=== PATIENT | female | born 1960 | race Caucasian/White ===

== ENCOUNTER 2024-07-20 10:44 | Outpatient (CLI) | payer BC, SELFPAY | END 2024-07-20 10:45 | disposition home or self-care (01) | LOC: MRI 10:48 | PROVIDERS: PCP Family Medicine; Visit Provider Surgery | DX: C50.211 Malignant neoplasm of upper-inner quadrant of right female breast (principal); R59.0 Localized enlarged lymph nodes; K76.9 Liver disease, unspecified; N63.10 Unspecified lump in the right breast, unspecified quadrant | CPT/HCPCS: 77049; A9575 ==

== ENCOUNTER 2024-07-27 10:11 | Outpatient (CLI) | payer BC, SELFPAY ==
--- NOTE | 2024-07-27 10:15 | CRLHL7_ITS ---
For Patients: As a result of the Century Cures Act, medical imaging exams and procedure reports are released immediately into your electronic medical record. You may view this report before your referring provider. If you have questions, please contact your health care provider. 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 This is concordant. Appropriate action recommended. Dictated by: Wayne Ross MD @07/31/2024 10:50:31 AM/jj ULTRASOUND-GUIDED LEFT BREAST BIOPSY AND POST-BIOPSY DIGITAL MAMMOGRAM FOR BIOPSY MARKER PLACEMENT CLINICAL HISTORY: RIGHT breast cancer. Suspicious lesion on MRI. COMPARISON STUDIES: MRI 07/20/2024, mammograms 07/10/2024. TECHNIQUE: Real-time ultrasound with image documentation was used for targeting the breast lesion. Core biopsy specimens were obtained using an automated gun with a 16-gauge biopsy needle. Post-biopsy CC and ML digital mammograms were obtained to document position of the biopsy marker. CONSENT and TIME OUT: The procedure, risks, and alternatives were explained to the patient and a consent was signed. [place] Protocol was followed including pre-procedure verification that relevant information/documentation was available, reviewed and properly matched to the patient; consent accurate and complete; and equipment and supplies available. Time Out was conducted just prior to starting procedure to verify the four required elements: patient identity, correct side/site marked (if applicable), procedure, relevant images/results properly labeled and displayed (if applicable). PROCEDURE: The patient was positioned supine on the ultrasound table. The breast was prepped with ChloraPrep. 8 cc of 1% lidocaine used for local anesthesia. Core samples were obtained. A sterile metal biopsy clip was placed percutaneously to chelly the lesion position within the breast. The specimens were placed in 10% formalin and sent to the pathology department. Pressure was held on the biopsy site until all bleeding subsided. The skin incision was closed with Steri-Strips. An ice pack was positioned over the biopsy site. Post-biopsy instructions were reviewed with the patient, and a written copy was given to her. LATERALITY: LEFT breast LESION: Solid lobular hypoechoic nodule with possible distal acoustic shadowing measuring 8 x 5 x 5 millimeters at 5 o`clock 6 cm from the nipple. SUSPICION FOR MALIGNANCY: High NUMBER OF SAMPLES: 5 BIOPSY CLIP SHAPE: Oval-shaped PROXIMITY OF CLIP TO TARGET: Within the lesion IMPRESSION: Ultrasound-guided LEFT breast biopsy. When the pathology report is available, an addendum to this report will be made. ACR not applicable Dictated by Wayne Ross MD @ 07/27/2024 1:43:26 PM CRL:james RD/Dictated by: Wayne Ross MD @ 07/27/2024 1:43:00 PM Signed by: Wayne Ross @ 07/27/2024 2:41:07 PM (Electronic Signature) (Electronically Signed)
--- NOTE | 2024-07-27 10:15 | CRLHL7_ITS ---
For Patients: As a result of the Century Cures Act, medical imaging exams and procedure reports are released immediately into your electronic medical record. You may view this report before your referring provider. If you have questions, please contact your health care provider. ULTRASOUND-GUIDED RIGHT AXILLARY LYMPH NODE BIOPSY CLINICAL HISTORY: Right breast cancer. Prominent right axillary lymph nodes. COMPARISON STUDIES: Breast MRI 07/20/2024 TECHNIQUE: Real-time ultrasound with image documentation was used for targeting the right axillary lesion. Core biopsy specimens were obtained using an automated gun with an 18-gauge biopsy needle. CONSENT and TIME OUT: The procedure, risks, and alternatives were explained to the patient and a consent was signed. [place] Protocol was followed including pre-procedure verification that relevant information/documentation was available, reviewed and properly matched to the patient; consent accurate and complete; and equipment and supplies available. Time Out was conducted just prior to starting procedure to verify the four required elements: patient identity, correct side/site marked (if applicable), procedure, relevant images/results properly labeled and displayed (if applicable). PROCEDURE: The patient was positioned supine on the ultrasound table. The breast was prepped with ChloraPrep. 8 cc of 1 percent lidocaine was used for local anesthesia. Core samples were obtained. A sterile metal biopsy clip was placed percutaneously to chelly the lesion position within the right axilla. The specimens were placed in 10% formalin and sent to the pathology department. Pressure was held on the biopsy site until all bleeding subsided. The skin incision was closed with Steri-Strips. An ice pack was positioned over the biopsy site. Post-biopsy instructions were reviewed with the patient, and a written copy was given to her. LATERALITY: Right axilla LESION: Mildly prominent right axillary lymph node measuring 1.8 cm SUSPICION FOR MALIGNANCY: Intermediate NUMBER OF SAMPLES: 5 BIOPSY CLIP SHAPE: HydroMARK PROXIMITY OF CLIP TO TARGET: Within the lesion IMPRESSION: Ultrasound-guided right axillary lymph node biopsy. When the pathology report is available, an addendum to this report will be made. ACR not applicable Dictated by Wayne Ross MD @ 07/27/2024 1:11:48 PM (Electronically Signed)
--- NOTE | 2024-07-27 11:00 | CRLHL7_ITS ---
For Patients: As a result of the Century Cures Act, medical imaging exams and procedure reports are released immediately into your electronic medical record. You may view this report before your referring provider. If you have questions, please contact your health care provider. SEE LEFT BREAST ULTRASOUND-GUIDED BIOPSY OF SAME DAY. CRL:james RD/Dictated by: Wayne Ross MD @ 07/27/2024 1:39:00 PM (Electronically Signed)
== END 2024-07-27 10:12 | disposition home or self-care (01) ==
LOC: US 10:12
PROVIDERS: PCP Family Medicine; Visit Provider Surgery
DX: N63.20 Unspecified lump in the left breast, unspecified quadrant (principal); C50.912 Malignant neoplasm of unspecified site of left female breast; C50.911 Malignant neoplasm of unspecified site of right female breast; Z17.0 Estrogen receptor positive status [ER+]
CPT/HCPCS: 19083; 38505; 76942; 77065; 88305; 88342; 88360; 88361; A4648; A4649

== ENCOUNTER 2024-08-09 11:38 | Outpatient (CLI) | payer BC, SELFPAY ==
--- NOTE | 2024-08-09 12:00 | CRLHL7_ITS ---
For Patients: As a result of the Century Cures Act, medical imaging exams and procedure reports are released immediately into your electronic medical record. You may view this report before your referring provider. If you have questions, please contact your health care provider. INDICATION: Leg pain and swelling TECHNIQUE: Ultrasound venous duplex lower left extremity. Compression venous exam was performed using barton-scale, color Doppler, and spectral Doppler analysis. COMPARISON: None. FINDINGS: Sonographic imaging demonstrates the left common femoral, deep femoral, superficial femoral, popliteal, posterior tibial and greater saphenous and the contralateral right common femoral veins to be fully compressible with normal color Doppler blood flow. IMPRESSION: Normal left lower extremity venous ultrasound, no sign of deep venous thrombosis. Dictated by Clifford Larios MD @ 08/09/2024 1:09:23 PM (Electronically Signed)
== END 2024-08-09 11:39 | disposition home or self-care (01) ==
LOC: US 11:39
PROVIDERS: PCP Family Medicine; Visit Provider Internal Medicine Hematology & Oncology
DX: M79.605 Pain in left leg (principal); M79.89 Other specified soft tissue disorders; C50.919 Malignant neoplasm of unspecified site of unspecified female breast
CPT/HCPCS: 93971

== ENCOUNTER 2024-08-09 12:16 | Outpatient (BNVA) | payer BC, SELFPAY | END 2024-08-09 12:30 | disposition home or self-care (01) | PROVIDERS: PCP Family Medicine; Referring Provider Family Medicine; Visit Provider Internal Medicine Hematology & Oncology | DX: C50.919 Malignant neoplasm of unspecified site of unspecified female breast (principal); M79.89 Other specified soft tissue disorders | CPT/HCPCS: 80053; 85025 ==

== ENCOUNTER 2024-09-06 15:03 | Outpatient (CLI) | payer BC, SELFPAY | END 2024-09-06 15:04 | disposition home or self-care (01) | LOC: NFLDREF 09-09 08:33 | PROVIDERS: PCP Family Medicine; Referring Provider Family Medicine; Visit Provider Internal Medicine Hematology & Oncology | DX: C50.211 Malignant neoplasm of upper-inner quadrant of right female breast (principal); C50.212 Malignant neoplasm of upper-inner quadrant of left female breast; Z17.0 Estrogen receptor positive status [ER+] | CPT/HCPCS: 80053 ==

== ENCOUNTER 2024-09-20 15:22 | Outpatient (BNVA) | payer BC, SELFPAY | END 2024-09-20 15:30 | disposition home or self-care (01) | PROVIDERS: PCP Family Medicine; Referring Provider Family Medicine; Visit Provider Physician Assistant | DX: C50.911 Malignant neoplasm of unspecified site of right female breast (principal); C50.912 Malignant neoplasm of unspecified site of left female breast; Z17.0 Estrogen receptor positive status [ER+]; C78.7 Secondary malignant neoplasm of liver and intrahepatic bile duct; C79.51 Secondary malignant neoplasm of bone; M79.89 Other specified soft tissue disorders; R79.89 Other specified abnormal findings of blood chemistry; O99.210 Obesity complicating pregnancy, unspecified trimester; E11.65 Type 2 diabetes mellitus with hyperglycemia; E66.01 Morbid (severe) obesity due to excess calories; Z68.41 Body mass index [BMI] 40.0-44.9, adult | CPT/HCPCS: 80053; 85025 ==

== ENCOUNTER 2024-11-29 14:48 | Outpatient (CLI) | payer BC, SELFPAY ==
--- NOTE | 2024-11-29 15:00 | CRLHL7_ITS ---
For Patients: As a result of the 21st Century Cures Act, medical imaging exams and procedure reports are released immediately into your electronic medical record. You may view this report before your referring provider. If you have questions, please contact your health care provider. EXAM: CT OF THE LEFT ANKLE, WITH IV CONTRAST CLINICAL INDICATION: Progressive left ankle pain. Breast carcinoma. COMPARISON STUDIES: None. TECHNICAL: Enhanced CT of the ankle with axial images. Sagittal oblique and coronal oblique reformatted images were created. Contrast: Isovue 370, 101 mL IV. FINDINGS: OSSEOUS STRUCTURES: No cortical or intramedullary osseous lesion. No fractures are evident. JOINT SPACES: Ankle: 0.5 cm area of subchondral cystic change in the lateral talar dome consistent with overlying chondromalacia. No ankle joint effusion. Subtalar, Talonavicular and Calcaneocuboid: Joint spaces are maintained. Midfoot and Midfoot-forefoot junction: Joint spaces are maintained. SOFT TISSUES: Mild dystrophic calcification in the medial ligamentous structures. No subcutaneous mass, fluid collection or hematoma. MUSCLES: No intramuscular mass or hematoma. No muscle atrophy. TENDONS: Thickening of the posterior tibial tendon consistent with moderate tendinopathy. There is focal thinning in the posterior tibial tendon at the margin of the tibial plafond worrisome for a high-grade partial-thickness tear. No Achilles tendon tear. No subluxation of the peroneal tendons. IMPRESSION: 1. Posterior tibial tendinopathy with findings worrisome for a focal high-grade partial-thickness tear. 2. Small area of subchondral cystic change in the lateral talar dome consistent with overlying chondromalacia. 3. Mild dystrophic calcification in the medial ligamentous structures. 4. No worrisome soft tissue or osseous lesion. Please note that all CT scans at this facility use dose modulation, iterative reconstruction, and/or weight-based dosing when appropriate to reduce radiation dose to as low as reasonably achievable. Dictated by Russell Ogden MD @ 11/30/2024 9:56:58 AM (Electronically Signed)
--- NOTE | 2024-11-29 15:30 | CRLHL7_ITS ---
For Patients: As a result of the 21st Century Cures Act, medical imaging exams and procedure reports are released immediately into your electronic medical record. You may view this report before your referring provider. If you have questions, please contact your health care provider. EXAM: FDG PET-CT Skull Base to Thighs CLINICAL INFORMATION: 64-year-old woman with history of breast cancer. Restaging TECHNIQUE: Radiopharmaceutical: 18F-fluorodeoxyglucose (18F-FDG) Dose: 14.14 MilliCurie. Blood glucose: 92 mg/dL. Image acquisition: At approximately 60 minutes following IV tracer administration via a right antecubital vein, positron emission tomography was performed from the skull base through the mid thigh. Non-contrast low-dose helical CT imaging was performed over the same range without breath-hold for attenuation correction of PET images and anatomic correlation; it is neither sufficient, nor should it be substituted for diagnostic purposes. COMPARISON: FDG PET CT 08/01/2024 FINDINGS: Mediastinal blood pool FDG uptake: SUVMax 2.9 (Image 91) Liver background parenchymal FDG uptake: SUVMax 3.8 (Image 131) PET Findings: Decreased intensely FDG avid 2.1 x 1.4 cm mass in the right posterior central breast SUVMax 16.8 (image 91), previously 4.0 x 3.4 cm SUVmax 12.8 (images 170-173). Decreased 1.7 x 0.6 cm right axillary node with resolved FDG uptake SUVMax 1.4 low blood pool (image 90) previously 2.0 x 1.2 cm, SUVMax 3.2 (image 171, remeasured in the same plane). Decreased extent of mild focal FDG uptake in the right thyroid without definite CT correlate SUVMax 3.0 (Image 48) previously SUVMax 4.3 (image 201, remeasured in the same plane). Resolved FDG uptake and decreased size of multifocal hepatic metastases, for example a decreased 1.9 x 1.6 cm lesion in segment 7/6 with resolved FDG uptake (image 141) previously 3.7 x 2.9 Cm, SUVMax 11.7 (image 134, remeasured in the same plane). As an additional example, decrease 1.0 x 1.0 cm lesion in segment 4 with resolved FDG uptake (image 136) previously 2.2 x 1.9 Cm, SUVMax 11.3 (Image 136, remeasured in the same plane). Resolved faint FDG uptake at a previously FDG avid right scapula lesion with new sclerosis, representing posttreatment change SUVMax 1.2 (image 93) previously SUVMax 6.3. No abnormal increased FDG uptake in the visualized skeleton. Tracer uptake elsewhere is physiologic. Non-PET findings: Similar thyromegaly measuring up to 10.0 cm in transverse dimension, with asymmetrically enlarged left thyroid lobe. Scattered aortic calcifications. Contrast in the bilateral renal calyces, ureters, and bladder likely from same day earlier contrast imaging study. Fibroid uterus. Multilevel degenerative changes in the spine. IMPRESSION: 1. Decreased intensely FDG avid 2.1 cm right breast mass representing the known breast cancer. 2. Decreased size and resolved FDG uptake in a right axillary otoniel metastasis. 3. Resolved FDG uptake and decreased size of multifocal hepatic metastases. 4. Resolved FDG uptake at a previously FDG avid right scapular osseous metastasis, now faintly FDG avid with uptake below blood pool. 5. No new FDG avid malignancy. 6. Similar thyromegaly measuring up to 10.0 cm in transverse dimension, with asymmetrically enlarged left thyroid lobe. Decreased mild focal FDG uptake in right thyroid without evident sequelae. Findings are nonspecific but may represent metabolic uptake a thyroid nodule. Correlate with thyroid ultrasound Dictated by Luis Carlos Shaw MD @ 12/04/2024 3:08:37 PM (Electronically Signed)
== END 2024-11-29 14:49 | disposition home or self-care (01) ==
LOC: CT 14:49
PROVIDERS: PCP Family Medicine; Visit Provider Physician Assistant
DX: C50.911 Malignant neoplasm of unspecified site of right female breast (principal); C50.912 Malignant neoplasm of unspecified site of left female breast; C79.51 Secondary malignant neoplasm of bone; C78.7 Secondary malignant neoplasm of liver and intrahepatic bile duct; E01.0 Iodine-deficiency related diffuse (endemic) goiter; Z17.0 Estrogen receptor positive status [ER+]; M25.572 Pain in left ankle and joints of left foot; M94.272 Chondromalacia, left ankle and joints of left foot
CPT/HCPCS: 73701; 78815; A9552; Q9967

== ENCOUNTER 2024-12-20 14:00 | Outpatient (CLI) | payer BC, SELFPAY ==
--- NOTE | 2024-12-20 14:00 | CRLHL7_ITS ---
For Patients: As a result of the Century Cures Act, medical imaging exams and procedure reports are released immediately into your electronic medical record. You may view this report before your referring provider. If you have questions, please contact your health care provider. INDICATION: Right breast cancer COMPARISON: CT-PET 11/29/2024 TECHNIQUE: Pepper scale and color Doppler images were acquired of the thyroid gland. FINDINGS: Thyroid echotexture is diffusely heterogeneous. Isthmus measures 2.2 cm. Ill-defined nodules throughout the right thyroid lobe are present measuring 6.7 x 2.9 x 4.8 cm, 3.3 x 2.5 x 2.3 cm and 1.7 x 2.0 x 1.3 cm. The right lobe measures 6.7 x 2.9 x 4.8 cm and the left lobe measures 10.1 x 4.6 x 5.7 cm in size. The color Doppler images demonstrate normal vascularity. There is no evidence of cervical lymphadenopathy or parathyroid mass. IMPRESSION: Diffusely enlarged and heterogeneous thyroid with multiple right-sided nodules. By report, patient has had multiple negative biopsies in the past. FNA not indicated at this time. Dictated by Wayne Ross MD @ 12/21/2024 7:10:34 AM (Electronically Signed)
== END 2024-12-20 14:01 | disposition home or self-care (01) ==
LOC: US 14:00
PROVIDERS: PCP Family Medicine; Visit Provider Internal Medicine Hematology & Oncology
DX: C50.911 Malignant neoplasm of unspecified site of right female breast (principal); E01.0 Iodine-deficiency related diffuse (endemic) goiter; Z17.0 Estrogen receptor positive status [ER+]
CPT/HCPCS: 76536

== ENCOUNTER 2025-01-10 11:30 | Outpatient (RCR) | payer BC, SELFPAY ==
--- NOTE | 2024-08-10 08:57 | ONC.NURNOTE ---
Patient updated on plan of care. 1. Ibrance Rx faxed to [facility]. Will await PA and co-pay information. Will plan chemotherapy teach once we have determined if Ibrance is approved by insurance. 2. Request for [facility] testing on liver biopsy tissue faxed. 3. Request for genetic counseling/testing faxed to [facility]. They will call patient to schedule. We will wait to schedule follow up prior to cycle 2 until we know a start date.
--- NOTE | 2024-08-16 15:00 | ONC.NURNOTE ---
SUNDAY approved for Ibrance.? Patients Rx was transferred to [facility]. Waiting for patient to call with co-pay information.? I told her if the co-pay was reasonable, to schedule delivery and let us know a delivery date.? If it is not reasonable, we will have to look into patient assistance.? Once we have a confirmed ship date, patient needs to schedule a chemo teach.?
--- NOTE | 2024-08-23 15:02 | URNOTE ---
Request received for authorization for Zoledronic Acid ([id number]). Prior authorization is not required per Mariandelphine on behalf of [facility], start date 09/13/2024, Ref#[id number].
--- NOTE | 2024-08-23 15:30 | ONC.NURNOTE ---
I met with patient and her Homer for teaching. We reviewed administration instructions and side effects of Ibrance. Printed information was provided. We discussed how and when she will request her shipments from the specialty pharmacy. She was instructed not to start a new cycle of her Ibrance each month until her labs have been reviewed and she has been instructed to start. Patient wants to wait to start her Ibrance until Tuesday since she is going to be out of town for the weekend. Patient will have her labs checked in 2 weeks at the [facility] and will follow up with Letha Casey prior to cycle 2. Patient had many questions about herbal supplements (ashwaganda, etc.) and teas. Patient will avoid herbal supplements but was informed it was okay to use herbal teas with the exception of tumeric, per Dr. Harley. Patient verbalizes understanding of plan and will call with questions or concerns.
--- NOTE | 2024-09-03 14:16 | ONC.NURNOTE ---
Call to patient to see how she is tolerating her Ibrance. She started the medication on 08/27 and has been taking it each morning with her Letrozole. She states Ibrance is not too bad. She has noted an increase in fatigue and reports feeling nauseated for an hour or two after taking the Ibrance. She denies vomiting. She also denies need for intervention at this time. Confirmed follow up plan with patient for labs 09/06 in [place] and labs and follow up 09/20 at [facility]. Patient encouraged to call with questions or concerns.
[2024-10-18 13:52] LABS: Hematocrit 37.1 % (33.0-51.0); Hemoglobin* 12.6 gm/dL (12.0-16.0); Immature Granulocytes Abs Auto 0.00 K/uL (0.00-0.30); Immature Granulocytes Pct Auto 0.0 %; Mean Corpuscular HGB Conc 34 gm/dL (32-36); Mean Corpuscular Hemoglobin 29 pg (26-34); Mean Corpuscular Volume 86 fL (80-100); RDW Coefficient of Variation % 15.6 % (11.5-15.5); Red Blood Count 4.31 m/uL (4.00-5.20); White Blood Count* 4.68 K/uL (4.50-11.00)
[2024-10-18 13:56] LABS: Lymphocytes Absolute Auto 2.20 K/uL (0.90-2.90); Slide Review Reflex No
[2024-10-18 14:06] LABS: Albumin* 4.5 g/dL (3.3-5.0); Chloride* 106 mmol/L (96-114); Potassium* 3.9 mmol/L (3.6-5.1); Sodium* 141 mmol/L (135-149)
[2024-10-18 14:08] LABS: Alanine Aminotransferase* 18 U/L (4-35); Alkaline Phosphatase* 60 U/L (40-150); Anion Gap 9 mEq/L (7-15); Aspartate Amino Transferase* 24 U/L (12-35); Bilirubin Total* 0.7 mg/dL (0.1-1.5); Blood Urea Nitrogen* 16 mg/dL (7-30); Carbon Dioxide* 26 mmol/L (20-32); Creatinine* 0.6 mg/dL (0.5-1.5); Est. Creatinine Clearance* 54.61; Estimated Glomerular Filt Rate 101 ml/min
[2024-10-18 14:09] LABS: Calcium* 9.5 mg/dL (8.4-10.6); Glucose* 103 mg/dL (60-115); Total Protein* 7.7 g/dL (6.0-8.3)
--- NOTE | 2024-10-30 12:00 | ONC.NURNOTE ---
Call to patient to discuss plan of care. Patient informed that we received her dental clearance form and can proceed with scheduling her Zometa infusion. Patient states she is scared to move forward. She states that even though she received clearance, her teeth still hurt and she has a long history of dental problems. Patient would like to discuss this further at her follow up visit on 11/19.
[2024-11-19 14:36] LABS: Hematocrit 38.0 % (33.0-51.0); Hemoglobin* 12.8 gm/dL (12.0-16.0); Immature Granulocytes Abs Auto 0.00 K/uL (0.00-0.30); Immature Granulocytes Pct Auto 0.0 %; Mean Corpuscular HGB Conc 34 gm/dL (32-36); Mean Corpuscular Hemoglobin 31 pg (26-34); Mean Corpuscular Volume 91 fL (80-100); RDW Coefficient of Variation % 16.9 % (11.5-15.5); Red Blood Count 4.20 m/uL (4.00-5.20); White Blood Count* 5.31 K/uL (4.50-11.00)
[2024-11-19 14:39] LABS: Lymphocytes Absolute Auto 2.50 K/uL (0.90-2.90)
[2024-11-19 14:40] LABS: Slide Review Reflex No
[2024-11-19 14:49] LABS: Albumin* 4.5 g/dL (3.3-5.0); Chloride* 104 mmol/L (96-114); Potassium* 4.6 mmol/L (3.6-5.1); Sodium* 140 mmol/L (135-149)
[2024-11-19 14:52] LABS: Alanine Aminotransferase* 24 U/L (4-35); Alkaline Phosphatase* 65 U/L (40-150); Anion Gap 5 mEq/L (7-15); Aspartate Amino Transferase* 31 U/L (12-35); Bilirubin Total* 0.7 mg/dL (0.1-1.5); Blood Urea Nitrogen* 17 mg/dL (7-30); Calcium* 9.7 mg/dL (8.4-10.6); Carbon Dioxide* 31 mmol/L (20-32); Creatinine* 0.7 mg/dL (0.5-1.5); Est. Creatinine Clearance* 54.61; Estimated Glomerular Filt Rate 98 ml/min; Glucose* 96 mg/dL (60-115); Total Protein* 7.9 g/dL (6.0-8.3)
--- NOTE | 2024-12-04 13:24 | ONC.NURNOTE ---
Podiatry referral placed by Letha Casey PA-C and faxed to [facility] in [place] per pt request.
[2024-12-17 12:23] LABS: Hematocrit 36.0 % (33.0-51.0); Hemoglobin* 12.2 gm/dL (12.0-16.0); Immature Granulocytes Pct Auto 0.2 %; Mean Corpuscular HGB Conc 34 gm/dL (32-36); Mean Corpuscular Hemoglobin 32 pg (26-34); Mean Corpuscular Volume 94 fL (80-100); RDW Coefficient of Variation % 15.5 % (11.5-15.5); Red Blood Count 3.85 m/uL (4.00-5.20); White Blood Count* 4.20 K/uL (4.50-11.00)
[2024-12-17 12:28] LABS: Immature Granulocytes Abs Auto 0.00 K/uL (0.00-0.30); Lymphocytes Absolute Auto 2.00 K/uL (0.90-2.90); Slide Review Reflex No
[2024-12-17 12:35] LABS: Chloride* 107 mmol/L (96-114)
[2024-12-17 12:36] LABS: Albumin* 4.3 g/dL (3.3-5.0); Potassium* 4.2 mmol/L (3.6-5.1); Sodium* 140 mmol/L (135-149)
[2024-12-17 12:38] LABS: Alanine Aminotransferase* 17 U/L (4-35); Anion Gap 5 mEq/L (7-15); Aspartate Amino Transferase* 22 U/L (12-35); Blood Urea Nitrogen* 15 mg/dL (7-30); Carbon Dioxide* 28 mmol/L (20-32); Creatinine* 0.7 mg/dL (0.5-1.5); Est. Creatinine Clearance* 54.61; Estimated Glomerular Filt Rate 98 ml/min
[2024-12-17 12:39] LABS: Alkaline Phosphatase* 60 U/L (40-150); Bilirubin Total* 0.7 mg/dL (0.1-1.5); Calcium* 9.7 mg/dL (8.4-10.6); Glucose* 100 mg/dL (60-115); Total Protein* 7.2 g/dL (6.0-8.3)
[2025-01-10 11:56] LABS: Hematocrit 34.6 % (33.0-51.0); Hemoglobin* 11.7 gm/dL (12.0-16.0); Immature Granulocytes Abs Auto 0.00 K/uL (0.00-0.30); Immature Granulocytes Pct Auto 0.0 %; Mean Corpuscular HGB Conc 34 gm/dL (32-36); Mean Corpuscular Hemoglobin 33 pg (26-34); Mean Corpuscular Volume 96 fL (80-100); RDW Coefficient of Variation % 13.4 % (11.5-15.5); Red Blood Count 3.60 m/uL (4.00-5.20); White Blood Count* 3.20 K/uL (4.50-11.00)
[2025-01-10 12:16] LABS: Lymphocytes Absolute Auto 1.60 K/uL (0.90-2.90); Slide Review Reflex No
[2025-01-10 12:18] LABS: Albumin* 4.1 g/dL (3.3-5.0); Chloride* 107 mmol/L (96-114); Sodium* 139 mmol/L (135-149)
[2025-01-10 12:19] LABS: Potassium* 4.3 mmol/L (3.6-5.1)
[2025-01-10 12:21] LABS: Alanine Aminotransferase* 15 U/L (4-35); Alkaline Phosphatase* 60 U/L (40-150); Anion Gap 3 mEq/L (7-15); Aspartate Amino Transferase* 20 U/L (12-35); Bilirubin Total* 0.8 mg/dL (0.1-1.5); Blood Urea Nitrogen* 16 mg/dL (7-30); Carbon Dioxide* 29 mmol/L (20-32); Creatinine* 0.7 mg/dL (0.5-1.5); Est. Creatinine Clearance* 54.61; Estimated Glomerular Filt Rate 98 ml/min; Total Protein* 7.1 g/dL (6.0-8.3)
[2025-01-10 12:22] LABS: Calcium* 9.6 mg/dL (8.4-10.6); Glucose* 87 mg/dL (60-115)
--- NOTE | 2025-01-10 15:15 | ONC.NURNOTE ---
Addendum entered by Bonnie Mckeon 01/10/25 15:29: Also discussed neutropenic precautions and seek medical attention for any sign of infection. Original Note: Message left for patient that her labs are within parameters to continue Ibrance. Note ANC=1.3. Patient is still in her week off, she will resume her next cycle of Ibrance on 01/14. Patient encouraged to call with questions or concerns.
== END 2025-02-05 23:59 | disposition home or self-care (01) ==
LOC: CCIC 11:30
PROVIDERS: Physician Assistant; PCP Family Medicine; Referring Provider Family Medicine; Visit Provider Internal Medicine Hematology & Oncology
DX: C50.911 Malignant neoplasm of unspecified site of right female breast (principal); C50.912 Malignant neoplasm of unspecified site of left female breast; Z17.0 Estrogen receptor positive status [ER+]; C79.51 Secondary malignant neoplasm of bone; C78.7 Secondary malignant neoplasm of liver and intrahepatic bile duct
CPT/HCPCS: 36415; 80053; 83735; 85025; 99203; 99205; 99211; 99215; G0463

== ENCOUNTER 2025-03-07 13:53 | Outpatient (CLI) | payer BC, SELFPAY ==
--- NOTE | 2025-03-07 14:00 | CRLHL7_ITS ---
For Patients: As a result of the Century Cures Act, medical imaging exams and procedure reports are released immediately into your electronic medical record. You may view this report before your referring provider. If you have questions, please contact your health care provider. CLINICAL HISTORY: Breast cancer. TECHNIQUE: Following IV injection of 55-yhbkyq-4-deoxyglucose (FDG) and a standard uptake period of approximately 60 minutes, a non-contrast CT scan followed by a PET scan were acquired along the length of the body from the mid portion of the head to the mid thighs. The non-contrast CT was used for anatomic localization and photon attenuation correction of the PET scan. Blood Glucose Level (mg/dL): 100 FDG Dose (mCi): 14.3 COMPARISON: PET-CT scans dated 29 November 2024 and 01 August 2024. FINDINGS: Head/Neck: Significantly enlarged thyroid gland measuring 10.8 x 6.0 cm, SUV max 2.0 previously 2.7. No other abnormal activity identified in the head and neck. Chest: No mediastinal or hilar adenopathy. No axillary adenopathy. 2.0 cm nodule located centrally in the right breast, SUV max 7.4 previously 16.8. The lungs show no focal pulmonary opacities. No pneumothorax. Abdomen/Pelvis: 3.3 cm lesion in the left lobe of the liver and a few other small liver lesions show no abnormal activity. No focal abnormalities identified in the visualized portions of the spleen, pancreas, adrenal glands, and kidneys. No hydronephrosis. The GI tract is incompletely distended but shows no gross abnormalities. No retroperitoneal, pelvic sidewall, or mesenteric adenopathy. Bones: Degenerative changes of the spine. Small sclerotic lesion in the lateral aspect of the right scapula shows no abnormal activity and is unchanged. 1.0 cm sclerotic lesion in the left acetabulum shows no abnormal activity and is unchanged and may represent a bone island. IMPRESSION: 1. Right breast mass shows decreased activity. 2. Significantly enlarged thyroid gland shows slightly decreased activity. 3. Liver metastases show no abnormal activity. 4. Sclerotic metastasis in the right scapula is unchanged. Dictated by Guevara Le MD @ 03/12/2025 12:57:00 PM (Electronically Signed)
== END 2025-03-07 13:54 | disposition home or self-care (01) ==
LOC: RAD 13:54
PROVIDERS: PCP Family Medicine; Visit Provider Internal Medicine Hematology & Oncology
DX: C50.211 Malignant neoplasm of upper-inner quadrant of right female breast (principal); C50.512 Malignant neoplasm of lower-outer quadrant of left female breast; C78.7 Secondary malignant neoplasm of liver and intrahepatic bile duct; C79.51 Secondary malignant neoplasm of bone
CPT/HCPCS: 78815; A9552

== ENCOUNTER 2025-03-16 09:52 | Inpatient (IN) | payer BC, SELFPAY ==
--- OUTSIDE RECORDS SUMMARY | 2019-03-01 03:44 | XMS_ITS | Continuity of Care Document ---
Author Organization [facility] Address [address] [address] [place] [address] Phone Care Team Providers Care Mint Machine Operator Name Role Phone Link Guido ALARCON Unavailable Unavailable Allergies, Adverse Reactions, Alerts Substance Reaction Status Criticality amoxicillin rash Active No Information Procedures Procedure Date Colonoscopy Flex; W/remov Les- 14 Level Iv-surg Path Gross/micro 14 Advance Directives Directive Yes / No Effective Date File Name No Information Encounters Encounter Description Practice Location Reason(s) For Visit Diagnoses Date Provider Providers Copied on Encounter [facility], [address] [address], [place], [place], [id number], [place] tel:[phone] [facility] No Information 9 Juan Lora. [address] [place] [address], [id number] , [place]. tel:[phone] [facility], [address] [address], [place], [place], [id number], [place] tel:[phone] [facility] Polyp-intes/rect/ stom-unc BehColon Cancer ScreeningBenign Neoplasm ColonHemorrhoids NosColon Cancer ScreeningHemorrho ids NosBenign Neoplasm Colon Carson Farmer. [address] [facility], [address], [id number] , [place]. tel:[phone] Family History Family Member Type Diagnosis Age At Onset No Information Payers Payer name Insurance type Covered green party ID Margaret martinez(s) [facility] [place] [id number] Social History Type Description Quantity Date Captured Comments Sex Female Smoking Status No Information Chief Complaint And Reason For Visit No Information Reason For Referral Reason For Referral No Information History Of Present Illness Encounter Date Complaint History Of Prese nt Illness No Information Functional Status Date Functional Assessmen t No Information Instructions Date Instruction Additional Infor mation No Information Assessments Type Assessment Date No Information Patient Care Teams Name Effective Dates (start - stop) Status Members No Information
--- OUTSIDE RECORDS SUMMARY | 2019-03-01 03:44 | XMS_ITS | Continuity of Care Document ---
Author Organization [facility] Address [address] [address] [place] [address] Phone Care Team Providers Care Tool Technician Name Role Phone Link Guido ALARCON Unavailable Unavailable Allergies, Adverse Reactions, Alerts Substance Reaction Status Criticality amoxicillin rash Active No Information Procedures Procedure Date Colonoscopy Flex; W/remov Les- 14 Level Iv-surg Path Gross/micro 14 Advance Directives Directive Yes / No Effective Date File Name No Information Encounters Encounter Description Practice Location Reason(s) For Visit Diagnoses Date Provider Providers Copied on Encounter [facility], [address] [address], [place], [place], [id number], [place] tel:[phone] [facility] No Information 9 Juan Lora. [address] [place] [address], [id number] , [place]. tel:[phone] [facility], [address] [address], [place], [place], [id number], [place] tel:[phone] [facility] Polyp-intes/rect/ stom-unc BehColon Cancer ScreeningBenign Neoplasm ColonHemorrhoids NosColon Cancer ScreeningHemorrho ids NosBenign Neoplasm Colon Carson Farmer. [address] [facility], [address], [id number] , [place]. tel:[phone] Family History Family Member Type Diagnosis Age At Onset No Information Payers Payer name Insurance type Covered alliance party ID Margaret martinez(s) [facility] [employer] [employer] [id number] Social History Type Description Quantity Date Captured [...]
[2025-03-16] VITALS (28 sets, daily range): BP systolic 96–145; BP diastolic 50–83; PULSE 89–112; RESP 12–25; TEMP 36.9–37.7; O2SAT 93–98; BMI 29.8
--- OUTSIDE RECORDS SUMMARY | 2025-03-16 09:55 | XMS_ITS | Clinical Summary ---
Author Organization [facility] Address [address] [place] [address] Care Team Providers Care Digitizer Operator Name Role Phone SandritaneerugunnerShahla Primary Care Provider [phone] Deandra Marshall RN Unavailable Allergies Active Allergy Reactions Criticality Noted Date Comments Amoxicillin Rash 03/12/2013 Medications clindamycin 1% (CLEOCIN-T) 1 % gelIndications: Folliculitis Apply to the affected areas of the chest twice daily 60 g 2 04/19/2023 Active Active Problems Problem Noted Date Diagnosed Date Infiltrating ductal carcinoma of right breast Pap smear for cervical cancer screening 01/28/20 23 Overview (01/31/2023): 01/2023 NIL/HPV negative Plan: Pap/HPV due 01/2028 Prediabetes 01/23/2023 Mixed dyslipidemia 01/23/2023 Overview (01/23/2023): ASCVD 10 year risk 4.6%. Goiter 01/21/2023 Menopausal vasomotor syndrome 01/21/2023 History of basal cell carcinoma 01/21/2023 Elevated blood pressure read ing without diagnosis of hypertension 01/21/2023 Asymptomatic varicose veins of both lower extrem ities 01/21/2023 Family history of non-Hodgkin's lymphoma 023 GOITER, SIMPLE 08/03/1999 Encounters Date Type Department Care Team Description 03/16/2025 Nurse Triage [facility] [address] [place] [address] AlberShahla martino, DO Abdominal Pain 03/07/2025 Orders Only [facility] Scanner 1 scan: (1-Ord) VANTAGE, SKULL TO MID THIGH, 03/07/2025 12/20/2024 Orders Only [facility] Scanner 1 scan: (1-Ord) [facility], US THYROID, 12/20/2024 from Last 3 Months Immunizations Immunization Administration Dates Next Due Td (Age >=7 Years) 05/10/2006 Tdap 09/22/2016 Family History Medical History Relation Name Comments Good Health Brother 1 Cancer-prostate Brother 2 Alcoholism Father Heart attack Maternal Grandfather Lymphoma Maternal Grandmother Cancer Mother lymphoma - non- hodkins Good Health Sister 1 Good Health Sister 2 Good Health Sister 3 Good Health Sister 4 Cancer-breast No Family History Relation Name Status Comments Brother 1 Brother 2 Father Maternal Grandfather Maternal Grandmother Mother Sister 1 Sister 2 Sister 3 Sister 4 Social History Tobacco Use Types Packs/Day Years Used Date Smoking Tobacco: Never Smokeless Tobacco: Never Tobacco Cessation:Counseling Given: Yes Alcohol Use Standard Drinks/Week Comments Yes 0 (1 standard drink = 0.6 oz pur e alcohol) Occasional PHQ-2 Answer Date Recorded PHQ-2 TOTAL SCORE 0 07/09/2024 Social Connections Answer Date Recorded Do you often feel lonely or isolated from those around you? 0 07/09/2024 Financial Resource Strain Answer Date R ecorded Difficulty of Paying Living Expenses 3 07/09/2024 Difficulty of Paying Living Expenses Not on file 07/09/2024 Food Insecurity Answer Date Recorded Do you worry your food will run out before you are able to buy more? 1 07/09/2024 Transportation Needs Answer Date Record ed Does lack of transportation keep you from medica l appointments? 1 07/09/2024 Does lack of transportation keep you from work, meetings or getting things that you need? 1 07/09/2024 Housing Stability Answer Date Recorded What is your housing situation today? 1 07/09/2024 Utilities Answer Date Recorded Do you have trouble paying f or utilities (for example, heat, electricity, water, phone)? 1 07/09/2024 Comments No Sex and Gender Information Value Date Recorded Sex Assigned at Not on file Legal Sex Female 5:41 AM SOLAR ELECTRIC PRACTITIONER Gender Identity Not on file Sexual Orientation Not on file Obstetrics History Last Filed Vital Signs Vital Sign Reading Time Taken Comments Blood Pressure 135/78 08/06/2024 11:15 AM CDT Pulse 89 08/06/2024 11:15 AM CDT Temperature 36.1 C (97 F) 08/06/2024 8:10 AM CDT Respiratory Rate 16 08/06/2024 10:15 AM CDT Oxygen Saturation 89% 08/06/2024 11:15 AM CDT Inhaled Oxygen Concentration - - Weight 96.6 kg (213 lb) 08/06/2024 7:59 AM CDT Height 170.2 cm (5' 7) 08/06/2024 7:59 AM CDT Body Mass Index 33.36 08/06/2024 7:59 AM CDT Plan of Treatment Health Maintenance Due Date Last Done Comments HIV for age 15-65 1977 Pneumococcal series for age 50+ (1 of 2 - PCV) 1981 Zoster (shingles) series for age 50+ (1 of 2) 1981 Colonoscopy through age 75 05/28/2018 05/28/2013 RSV vaccine for adults or (1 - Risk 60-74 years 1-dose series) 2022 Influenza Vaccine (#1) 2025 BMI (ht and wt on same day) for age 18+ 07/09/2025 07/09/2024, 06/27/2023, 01/21/2023, Additional history exists Mammogram for age 45-75 07/10/2025 07/10/19 25, 02/22/2017, 03/13/2013 Depression screening for age 12+ 07/13/2025 07/13/2024, 2024, 2024, Additional history exists Tetanus booster 09/22/2026 09/22/2016, 05/10/2006 Lipids for age 45-75 01/22/2028 01/21/2023, 02/24/2017, 03/12/2013 Pap test for age 21-65 01/22/2028 , 01/21/2023, 02/24/2017, Additional history exists Hepatitis C screening for age 18-79 Completed 02/24/2017 Hepatitis B series for 19+ Aged Out N o longer eligible based on patient's age to complete this topic Procedures Procedure Name Priority Date/Time Associated Diagnosis Comments SCAN-PET SCAN 03/07/2025 12:00 AM CDT SCAN-ULTRASOUND REPORT 12/20/2024 12:00 AM CDT XR MAMMO DEBBIE BILAT DIAG STAT 07/10/2024 7:35 AM SOLAR ELECTRIC PRACTITIONER Mass of upper inner quadrant of right breast SUPERINTENDENT STATIONS THIN PREP PAP SCREEN IMAGED Routine 01/21/2023 9:35 AM CDT Cervical cancer screening LIPID PANEL W REFLEX MEASURED LDL Routine 01/21/2023 8:27 AM CDT Screening cholesterol level ACUTE HEPATITIS PANEL Routine 02/24/2017 10:20 AM CDT Encounter for hepatitis C screening test for low risk patient SCAN-COLONOSCOPY 05/28/2013 8:00 AM SOLAR ELECTRIC PRACTITIONER from Last 3 Months or Most Recently Relevant to Health Maintenance Results * SCAN-PET SCAN (03/07/2025 12:00 AM CDT) Anatomical Region Laterality Modality Other us Scanner OTHER Final Result * SCAN-ULTRASOUND REPORT (12/20/2024 12:00 AM CDT) Anatomical Region Laterality Modality Other us Scanner OTHER Final Result * XR MAMMO DEBBIE BILAT DIAG (07/10/2024 7:35 AM SOLAR ELECTRIC PRACTITIONER) Anatomical Region Laterality Modality BREASTS, Breast Left, Breast Right Bilateral Mammography, Radiographic Imaging 07/10/2024 7:35 AM SOLAR ELECTRIC PRACTITIONER Impressions 07/10/2024 10:53 AM SOLAR ELECTRIC PRACTITIONER ACR BI-RADS Category 4: Suspicious. Results given to the patient. Same-day right breast biopsy will be performed. PATIENTS: You will also receive a letter with your examination results in an easy to read format. If you have questions about your results, please contact your referring provider. Narrative 07/10/2024 10:53 AM SOLAR ELECTRIC PRACTITIONER For Patients: As a result of the Cures Act, medical imaging exams and procedure reports are released immediately into your electronic medical record. You may view this report before your referring provider. If you have questions, please contact your health care provider. EXAM: XR MAMMO DEBBIE BILAT DIAG, US BREAST UNILATERAL RIGHT LIMITED LOCATION: [facility] DATE: 07/10/2024 INDICATION: Mass of upper inner quadrant of right breast. COMPARISON: 02/22/2017 MAMMOGRAPHIC FINDINGS: Bilateral full-field digital diagnostic mammograms performed. There are scattered areas of fibroglandular density. When performed, computer- aided detection was used in the interpretation of this study. Breast tomosynthesis was used in interpretation. Irregular mass in the medial right breast measuring approximately 4 x 3 cm in size. No additional findings in the right breast. The left breast is unremarkable. ULTRASOUND FINDINGS: Targeted ultrasound of the right breast at the 1:00 position and 2 cm from nipple demonstrates a lobulated hypoechoic mass measuring 2.9 x 2.7 x 3.4 cm. Several of the margins are irregular with posterior shadowing present. Procedure Note Shaheed Looney MD - 07/10/2024 For Patients: As a result of the Cures Act, medical imagingexams and procedure reports are released immediately into your electronicmedical record. You may view this report before your referring provider.If you have questions, please contact your health care provider. EXAM: XR MAMMO DEBBIE BILAT DIAG, US BREAST UNILATERAL RIGHT LIMITED LOCATION: [facility] DATE: 07/10/2024 INDICATION: Mass of upper inner quadrant of right breast. COMPARISON: 02/22/2017 MAMMOGRAPHIC FINDINGS: Bilateral full-field digital diagnostic mammogramsperformed. There are scattered areas of fibroglandular density. Whenperformed, computer- aided detection was used in the interpretation of thisstudy. Breast tomosynthesis was used in interpretation. Irregular mass inthe medial right breast measuring approximately 4 x 3 cm in size. Noadditional findings in the right breast. The left breast isunremarkable. ULTRASOUND FINDINGS: Targeted ultrasound of the right breast at the 1:00position and 2 cm from nipple demonstrates a lobulated hypoechoic massmeasuring 2.9 x 2.7 x 3.4 cm. Several of the margins are irregular withposterior shadowing present. IMPRESSION: ACR BI-RADS Category 4: Suspicious. Results given to the patient. Same-day right breast biopsy will beperformed. PATIENTS: You will also receive a letter with your examination results inan easy to read format. If you have questions about your results, pleasecontact your referring provider. us Shahla Velazquez DO MAMMO Final Resul t * SUPERINTENDENT STATIONS THIN PREP PAP SCREEN IMAGED (01/21/2023 9:35 AM CDT) Case Report Gynecologic Cytology Report Case: [id number] Authorizing Provider: Shahla Velazquez DO Collected: 01/21/2023 0935 Ordering Location: [facility] Received: 01/21/2023 0935 Clinic First Screen: Haseeb Lyn Rescreen: Charisse Durham Specimen: SUPERINTENDENT STATIONS ThinPrep Vial Screening, Cervical 01/27/2023 4:54 PM CDT [facility] INTERPRETATION/ RESULT NEGATIVE FOR INTRAEPITHELIAL LESION OR MALIGNANCY (NIL) (none) 01/27/2023 4:54 PM CDT [facility] at 1654 CDT SPECIMEN ADEQUACY Satisfactory for evaluation Endocervical component present 01/27/2023 4:54 PM CDT [facility] HPV REQUEST HPV if ASCUS 01/27/2023 4:54 PM CDT [facility] Date of LMP Postmenopausal 3 4:54 PM CDT [facility] Last Pap Date 02/24/17 01/27/2023 4:54 PM CDT [facility] Last Pap Result NIL 3 4:54 PM CDT [facility] Abnormal Pap or [place] Bx in last 5 years No 01/27/2023 4:54 PM CDT [facility] Menstrual Status Postmenopausal 01/27/2023 4:54 PM CDT [facility] [place] Bx Done Today No 01/27/2023 4:54 PM CDT [facility] Additional Information None given 01/27/2023 4:54 PM CDT [facility] Comment: Cytology is screened at [facility] - [address], [place] [address] and [facility] - [address], [place] [address] and [facility] - [address] [place] [address] Interpreted at [facility] - [address], [place] [address] Automated Review Successful 01/27/2023 4:54 PM CDT [facility] Comment:Specimen processed s uccessfully by automated hydroelectric production manager device, ThinPrep Imaging System, [employer] Note The pap test is a screening technique, not a diagnostic procedure. It is used primarily to screen for squamous cancers and precursor lesions. Published studies have shown that it is subject to both false negative and false positive results. The pap test should not be used as the sole means to diagnose or exclude pre-malignant and malignant lesions. 01/27/2023 4:54 PM CDT [facility] Other (Cervical) Non-Blood / Unknown 01/21/2023 9:35 AM CDT 01/21/2023 9:35 AM CDT us Shahla Velazquez DO PATHOLOGY/CYTOLOGY Final Re sult [facility] [address] [place] [address], [place] * (ABNORMAL) LIPID PANEL W REFLEX MEASURED LDL (01/21/2023 8:27 AM CDT) CHOLESTEROL,TOTAL 250(H) 100 - 199 mg/dL 01/22/2023 4:14 PM CDT [facility] Comment: Cholesterol, Total Reference Ranges Desirable <200 mg/dL Borderline 200-239 mg/dL High >=240 mg/dL TRIGLYCERIDES 104 <150 mg/dL 01/22/2023 4:14 PM CDT [facility] HDL CHOLESTEROL 69 >40 mg/dL 4:14 PM CDT [facility] NON-HDL CHOLESTEROL 181(H) <145 mg/dl 01/22/2023 4:14 PM CDT [facility] CHOL/HDL RATIO 3.62 <4.50 01/22/2023 4:14 PM CDT [facility] LDL CHOLESTEROL 160(H) <=130 mg/dL 01/22/2023 4:14 PM CDT [facility] VLDL CHOLESTEROL 21 <=30 mg/dL 01/22/2023 4:14 PM CDT [facility] PROVIDER ORDERED STATUS FASTING 01/22/2023 4:14 PM CDT [facility] Blood BLOOD SPECIMEN / Unknown Venipuncture / Unknown 01/21/2023 8:27 AM CDT 01/21/2023 8:27 AM CDT Shahla Velazquez DO CHEMISTRY Final Resul t [facility] SENDOUT INTERNAL ZIP [id number] [place] [address] * ACUTE HEPATITIS PANEL (02/24/2017 10:20 AM CDT) HEPATITIS C ANTIBODY Non-Reactive Non-Reactive 02/24/2017 3:12 PM CDT [facility] IGM ANTI HAV Non-Reactive Non-Reactive 02/25/20 17 3:12 PM CDT [facility] HBSAG Nonreactive Nonreactive 02/24/2017 3:12 PM CDT [facility] IGM ANTI HBC Non-Reactive Non-Reactive 02/25/20 17 3:12 PM CDT [facility] Blood BLOOD SPECIMEN / Unknown Venipuncture / Unknown 02/24/2017 10:20 AM CDT 02/24/2017 10:20 AM CDT Narrative [facility] - 02/24/2017 3:12 PM CDT Anti-HBc IgM not detected. Does not exclude the possibility of exposure to or infection with HBV. us Bisi Waite MD SEND OUTS Final Res ult [facility] [address] [place] [address], [place] * SCAN-COLONOSCOPY (05/28/2013 8:00 AM SOLAR ELECTRIC PRACTITIONER) Narrative Transcriptions Darian Barakat MD - 05/28/2013 7:30 AM CST [facility] [address], [address], [place] [address] Patient Name: Cayla Cerda Gender: Female Exam Date: 05/28/2013 Visit Number: [id number] Age: 52 Years Date of : 1960 Attending MD: Darian Byrd MD Medical Record#: [id number] ----- Procedure: Colonoscopy Indications: Colorectal cancer screening Referring MD: Luis Carlos Batista MD Primary MD: Luis Carlos Batista MD Medications: Admitting Medication: Ondansetron Hydrochloride (Zofran) given 4mg by IV Intra Procedure Medications: Fentanyl given 0.1 mg by IV Midazolam given 2 mg by IV Recovery Medications: ondansetron hydrochloride (Zofran) 4 mg by IV Complications: No immediate complications Procedure: An examination of the heart and lungs was performed and found to be withinacceptable limits. The patient was therefore deemed a reasonablecandidate for endoscopy and conscious sedation. The risks and benefits of the procedure were explained to the patient.After obtaining informed consent, I medicated the patient and passed thescope without difficulty via the rectum to the cecum. The appendicealorifice and ic valve were identified. The scope was retroflexed duringthe examination The quality of the prep was excellent(Miralax/Gatorade/2 tablets Bisacodyl/Magnesium Citrate). This was a complete examination throughout the entire colon. Findings: Polyp location: transverse colon. Quantity: 1. Size: 3 mm. Polyp shape:flat lesion. Maneuver: polypectomy was performed with a cold snare. Removal: complete. Retrieval: complete. Bleeding: none. Polyp location: sigmoid. Quantity: 1. Size: 3 mm. Polyp shape: sessile. Maneuver: polypectomy was performed with a cold snare . Removal: complete. Retrieval: complete. Bleeding: none. Hemorrhoids. External hemorrhoids without bleeding. Remainder of the exam is normal. Impression: Polyps Hemorrhoids Pathology Results: A: COLON, TRANSVERSE, POLYP: 1. Sessile serrated adenoma (see comment) 2. No overt dysplasia present 3. Per the attached endoscopy report: a. Polyp size: 3mm b. Resection: Complete c. Retrieval: Complete B: COLON, SIGMOID, POLYP: 1. Tubular adenoma 2. No evidence of high grade dysplasia 3. Per the attached endoscopy report: a. Polyp size: 3mm b. Resection: Complete c. Retrieval: Complete COMMENTS A. Sessile serrated adenomas account for approximately 20% of what hadbeen called hyperplastic polyps in the past. They have malignant potentialthrough the 'serrated pathway' and have a tendency to be multiple andrecurrent. Regarding the recommended interval for follow-up endoscopy forpatients with sessile serrated adenomas to look for subsequent lesions,based on Ted Moon, et al, Am J Gastroenter 2012;107:1315- 1329 considerationfor intermediate interval follow-up endoscopy is reasonable given thesize, number, and distribution of sessile serrated adenomas. This generalrecommendation may need to be modified by the clinician based onindividual patient factors, however. Please contact us if you havequestions ([facility] pathologist desk [phone]). MICROSCOPIC A: Performed B: Performed Orders: Patient Education given to patient: Colon: Colon Cancer Prevention Colon Polyps Hemorrhoids High Fiber Diet Final Plan: Return for a colonoscopy in 5 years. We will attempt to contact you at appropriate intervals via U.S. mail. Wemay not be able to find you or contact you at that time, therefore youshould know that the responsibility for following our recommendation restswith you. If you don't hear from us at the time your procedure is due,please contact our office to schedule an appointment. If your contactinformation should change, please contact our office so that we can updateyour record. Plan Comments: _Electronically signed by: Darian Byrd MD 05/28/2013 cc: Luis Carlos Batista MD cc: Lynne ALARCON, Luis Carlos Mantilla [facility] [phone] *Portions of this document may have been recorded using electronic voicerecognition technology. us Darian Barakat MD OTHER Roxy l Result from Last 3 Months or Most Recently Relevant to Health Maintenance Insurance [facility] Care Teams Digitizer Operator Relationship Specialty Start Date End Date Shahla Velazquez DO PCP - General Family Practice 02/03/23 Deandra Marshall, SHYANNE [address] [place] [address] Nurse Navigator - Oncology Registered Nurse 07/11/24
--- NOTE | 2025-03-16 10:14 | CRLHL7_ITS ---
For Patients: As a result of the Century Cures Act, medical imaging exams and procedure reports are released immediately into your electronic medical record. You may view this report before your referring provider. If you have questions, please contact your health care provider. INDICATION: Right lower quadrant pain TECHNIQUE: CT abdomen and pelvis 93 mL Isovue 370 intravenous contrast. COMPARISON: PET-CT 03/07/2025 FINDINGS: Probable right breast mass only partially seen on the most superior image 2/ Lower chest: Unremarkable. Liver: Liver lesions not significantly changed Gallbladder and bile ducts: No stones or inflammation. No biliary dilatation. Pancreas: Unremarkable. No mass or inflammation. Spleen: Normal in size. No masses. Adrenal glands: Normal in size. No nodules. Kidneys: Probable left parapelvic cyst too small to characterize low-attenuation lesions in the right kidney. Small exophytic dense lesion off the inferior right kidney is incompletely assessed. Enhancement of the right there is mild urothelial ureter probably reactive from adjacent right lower quadrant inflammatory changes GI tract: Appendicolith at the base of the appendix dilated appendix with significant amount of surrounding edematous fluid and inflammatory stranding Vasculature: Abdominal aorta is normal in caliber. Lymph nodes: No lymphadenopathy. Peritoneum/Abdominal Wall: Unremarkable. No sign of mass or infiltration. No free air or significant free fluid. Pelvis: Heterogeneity of the uterus most likely reflecting myomatous uterus small amount of fluid in the pelvis Bones: Small sclerotic foci in the L4 vertebral body unchanged nonspecific sclerotic focus left pubis unchanged IMPRESSION: 1. Acute appendicitis appendicolith at the base of the appendix. Significant amount of inflammatory stranding and edematous fluid in the right lower quadrant. 2. Probable right breast mass only partially seen along the most superior image. 3. Liver masses are unchanged. Please note that all CT scans at this facility use dose modulation, iterative reconstruction, and/or weight-based dosing when appropriate to reduce radiation dose to as low as reasonably achievable. Dictated by Alma Le MD @ 03/16/2025 11:19:04 AM (Electronically Signed)
--- NOTE | 2025-03-16 10:23 | ED.GENADULT ---
HPI - General Adult General Chief complaint: Abdominal Pain Stated complaint: pain in lower right abdomen, fever Time Seen by Provider: 03/16/25 09:56 Source: patient Mode of arrival: ambulatory Limitations: no limitations History of Present Illness HPI narrative: 64-year-old female with a past medical history significant for metastatic breast cancer, presents today with right lower quadrant abdominal pain that is been present for approximately a day and a half. Pain started in the right lower quadrant and has been constant now for this entire time. Pain is getting worse. She vomited this morning. She describes a low-grade fever around 99. Moving makes it worse. Nothing seems to make it better. She has lost her appetite. She denies chills. She had 3 episodes of loose stools yesterday which is unusual for her. She denies any urinary symptoms such as increased frequency, urgency or dysuria. No blood in her stools, urine or vomitus. She denies intra-abdominal surgery. Related Data Home Medications ?Medication ?Instructions ?Recorded ?Confirmed ascorbic acid (vitamin C) 500 mg 500 mg PO DAILY PRN 09/20/24 03/17/25 capsule magnesium citrate 100 mg capsule 100 mg PO QDAY PRN 09/20/24 03/17/25 biotin 10,000 mcg chewable tablet 10,000 mcg PO QDAY 11/19/24 03/17/25 (Hair, Skin and Nails (biotin)) acetaminophen 500 mg tablet 1,000 mg PO Q6H PRN 02/11/25 03/17/25 (Tylenol Extra Strength) calcium 600 mg (as 1 cap PO BID 02/11/25 03/17/25 carbonate)-vitamin D3 10 mcg (400 unit) capsule Previous Rx's ?Medication ?Instructions ?Recorded letrozole 2.5 mg tablet 2.5 mg PO QDAY #90 tabs 08/09/24 diphenhydramine HCl 25 mg tablet 25 mg PO Q6H PRN itching #60 tabs 09/20/24 (Benadryl Allergy) palbociclib 125 mg capsule 125 mg PO QDAY #21 caps 02/11/25 ciprofloxacin HCl 500 mg tablet 500 mg PO BID #10 tabs 03/19/25 (Cipro) hydrocodone 5 mg-acetaminophen 325 1 tab PO Q6H PRN pain #25 tabs 03/19/25 mg tablet metronidazole 500 mg tablet 500 mg PO TID #15 tabs 03/19/25 Allergies Allergy/AdvReac Type Severity Reaction Status Date / Time amoxicillin Allergy Intermediate Hives Verified 03/13/25 14:31 Review of Systems Status of ROS: Reports: 10 or more systems reviewed and unremarkable except as noted in History and below [facility] Medical History Metastasis to bone ?C79.51 - Secondary malignant neoplasm of bone (ICD-10) Metastasis to liver ?C78.7 - Secondary malignant neoplasm of liver and intrahepatic bile duct (ICD-10) Bilateral malignant neoplasm of breast in female, estrogen receptor positive ?C50.911 - Malignant neoplasm of unspecified site of right female breast (ICD-10) ?C50.912 - Malignant neoplasm of unspecified site of left female breast (ICD-10) ?Z17.0 - Estrogen receptor positive status [ER+] (ICD-10) Swelling of left lower extremity ?M79.89 - Other specified soft tissue disorders (ICD-10) Breast cancer metastasized to multiple sites ?C50.919 - Malignant neoplasm of unspecified site of unspecified female breast (ICD-10) Surgical History H/O abdominoplasty ?Z98.890 - Other specified postprocedural states (ICD-10) Social History Smoking Status: Never smoker Do you use any of these nicotine containing products: None How often do you have a drink containing alcohol: never AUDIT-C Alcohol total score: 0 Non-prescribed substance use: denies use Exam Narrative: Exam Narrative: Well-nourished well-developed patient in no acute distress. Alert and oriented. Answers questions appropriately. Mood and affect are appropriate. Thoughts are goal oriented and rational. No tangential or magical thinking noted. Patient speaks in full sentences without needing to catch her breath. HEENT: Normocephalic atraumatic. Pupils are equally round reactive to light. Extraocular muscles are intact. Conjunctivae are moist without any icterus noted. Moist mucous membranes. Cardiovascular: Mild tachycardia. Lungs: Clear to auscultation bilaterally no wheezes rhonchi or rales are appreciated. Patient takes deep breaths without any discomfort. Abdomen: Soft and nondistended with normal bowel sounds. Patient has periumbilical and right lower quadrant tenderness. Tenderness at McBurney's point. No right upper quadrant tenderness or epigastric tenderness. She does have rebound tenderness. She is guarding. Extremities: Bilateral lower extremities are without edema. Skin: Warm, dry, intact. Const: Vital Signs, click to edit/add: Vital Signs - 24 hr 03/16/25 09:55 03/16/25 10:39 03/16/25 10:40 Temperature 99.3 F Pulse Rate 94 95 Pulse Rate [Right Radial] 103 H Respiratory Rate 14 16 Blood Pressure 135/73 Blood Pressure [Ri ght Upper Arm] 104/69 Pulse Oximetry 97 98 97 Oxygen Delivery Me thod Room Air 03/16/25 10:45 03/16/25 11:00 03/16/25 11:01 Temperature Pulse Rate 94 91 92 Pulse Rate [Right Radial] Respiratory Rate 12 Blood Pressure 135/72 Blood Pressure [Ri ght Upper Arm] Pulse Oximetry 97 97 98 Oxygen Delivery Me thod 03/16/25 11:15 03/16/25 11:30 03/16/25 11:31 Temperature Pulse Rate 93 91 96 Pulse Rate [Right Radial] Respiratory Rate 14 Blood Pressure 135/83 Blood Pressure [Ri ght Upper Arm] Pulse Oximetry 97 97 98 Oxygen Delivery Me thod Course Course ED Course: IV is established and patient is started on normal saline. She declined any pain medication at this time. Differential diagnosis includes appendicitis, volvulus, ischemic bowel, colitis. Blood work and abdominal CT scan were ordered. Blood blood cell count elevated at 12.89, 80% neutrophils. Sodium slightly low at 133, electrolytes otherwise unremarkable. Total bilirubin mildly elevated at 2.0, LFTs otherwise normal. Normal lipase. CRP elevated at 13.2. UA unremarkable. CT scan shows acute appendicitis and appendicolith at the base of the appendix with significant amount of inflammatory stranding and edematous fluid in the right lower quadrant. Consulted Dr. Mars, general surgery. Patient will proceed to the OR for further management. Vital Signs Vital signs: Initial Vital Signs Temperature 99.3 F 03/16/25 09:55 Temperature Source Temporal Artery Scan 03/16/25 09:55 Pulse Rate 103 H 03/16/25 09:55 Pulse Rhythm Regular 11/01/25 09:55 Respiratory Rate 14 03/16/25 09:55 Blood Pressure 104/69 03/16/25 09:55 Blood Pressure Mean 80 03/16/25 09:55 Pulse Oximetry 97 03/16/25 09:55 Oxygen Delivery Method Room Air 03/16/25 09:55 Vital Signs Temperature 99.3 F 03/16/25 09:55 Pulse Rate 103 H 03/16/25 09:55 Respiratory Rate 14 03/16/25 09:55 Blood Pressure 104/69 03/16/25 09:55 Pulse Oximetry 97 03/16/25 09:55 Oxygen Delivery Method Room Air 03/16/25 09:55 Temperature 98.4 F 03/19/25 09:39 Pulse Rate 84 03/19/25 09:39 Respiratory Rate 18 03/19/25 09:39 Blood Pressure 151/87 H 03/19/25 09:39 Pulse Oximetry 98 03/19/25 09:39 Oxygen Delivery Method Room Air 03/19/25 09:39 Medications Administered Medications: Discontinued Medications Generic Name Dose Route Start Last Admin Trade Name Freq PRN Reason Stop Dose Admin Acetaminophen 650 mg 03/16/25 15:47 03/17/25 09:28 Acetaminophen 325 Mg Tablet PO 650 mg Q6H PRN Administration Pain Hydrocodone Bitart/Acetaminophen 1 - 2 tab 03/16/25 15:47 03/19/25 03:13 Hydrocodone-Acetamin 5-325 Mg 1 Tab PO 2 tab Q6H PRN Administration Pain Bupivacaine HCl 30 ml 03/16/25 16:00 03/16/25 14:47 Bupivacaine 0.25% 30 Ml INJECTION 03/16/25 16:01 10 ml ONCE ONE Administration Ciprofloxacin 500 mg 03/19/25 10:03 03/19/25 10:27 Ciprofloxacin 500 Mg Tablet PO 03/19/25 10:04 500 mg ONCE ONE Administration Enoxaparin Sodium 40 mg 03/17/25 21:00 03/18/25 20:40 Enoxaparin 40 Mg/0.4 Ml Inj SUBCUT 40 mg Q24H TAMARA Administration Fentanyl 50 mcg 03/16/25 13:22 03/16/25 15:34 Fentanyl 100 Mcg/2 Ml Inj IVP 50 mcg Q5M PRN Administration Hydromorphone HCl 0.1 - 0.5 mg 03/16/25 15:47 03/18/25 08:16 Hydromorphone 0.5 Mg/0.5 Ml Inj IVP 0.5 mg Q1H PRN Administration Pain Sodium Chloride 1,000 mls @ 1,000 mls/hr 03/16/25 10:15 03/16/25 11:08 0.9 % Sodium Chloride 1000 Ml IV 03/16/25 11:14 Infused .Q1H TAMARA Infusion Ertapenem 1 gm/ Sodium 100 mls @ 200 mls/hr 03/16/25 13:30 03/16/25 13:05 Chloride IVPB 200 mls/hr Q24H TAMARA Administration Sodium Chloride 1,000 mls @ 125 mls/hr 03/16/25 13:20 03/17/25 01:54 CDT 0.9 % Sodium Chloride 1000 Ml IV Infused .Q8H TAMARA Infusion Sodium Chloride 1,000 mls @ 100 mls/hr 03/16/25 15:47 03/18/25 12:30 0.9 % Sodium Chloride 1000 Ml IV Infused .Q10H TAMARA Infusion Piperacillin Sod/Tazobactam 100 mls @ 100 mls/hr 03/17/25 09:00 03/19/25 10:35 Sod 3.375 gm/ Sodium Chloride IVPB Not Given Q6H TAMARA Sodium Chloride 1,000 mls @ 75 mls/hr 03/18/25 12:26 03/18/25 16:45 0.9 % Sodium Chloride 1000 Ml IV 75 mls/hr .[id number] TAMARA Administration Ketorolac Tromethamine 15 mg 03/17/25 15:52 03/17/25 16:06 Ketorolac 15 Mg/Ml Inj IVP 15 mg Q6H PRN Administration Letrozole 2.5 mg 03/17/25 09:00 03/19/25 09:34 Letrozole 2.5 Mg Tablet PO 2.5 mg DAILY TAMARA Administration Lidocaine/Epinephrine 20 ml 03/16/25 15:54 03/16/25 14:47 Lidocaine 1%-Epi 1:100,000 INFILTRATI 03/16/25 15:55 10 ml ONCE ONE Administration Lidocaine/Epinephrine 20 ml 03/16/25 16:00 03/16/25 16:00 Lidocaine 1%-Epi 1:100,000 INFILTRATI 03/16/25 16:01 Not Given ONCE ONE Metronidazole 500 mg 03/19/25 10:30 03/19/25 10:33 Metronidazole 500 Mg Tablet PO 500 mg TID TAMARA Administration Palbociclib 125 Mg 125 mg 03/17/25 09:00 03/19/25 09:36 Capsule PO 125 mg DAILY TAMARA Administration Ondansetron HCl 4 mg 03/16/25 13:22 03/16/25 13:22 Ondansetron 2 Mg/Ml Inj IVP 03/16/25 13:23 4 mg ONCE ONE Administration Ondansetron HCl 4 - 8 mg 03/16/25 15:47 03/18/25 16:44 Ondansetron 2 Mg/Ml Inj IVP 4 mg Q8H PRN Administration Nausea And Vomiting Prochlorperazine 10 mg 03/16/25 18:02 03/18/25 08:16 Prochlorperazine 5 Mg/Ml Vial IV 10 mg Q6H PRN Administration Medical Decision Making MDM Narrative Medical decision making narrative: 64-year-old female with acute appendicitis. Patient will proceed to the OR. Lab Data Labs: Lab Results 03/16/25 03/16/25 Range/Units 10:25 11:15 WBC 12.89 H (4.50-11.00) K/uL RBC 3.93 L (4.00-5.20) m/uL Hgb 12.9 (12.0-16.0) gm/dL Hct 37.7 (33.0-51.0) % MCV 96 (80-100) fL MCH 33 (26-34) pg MCHC 34 (32-36) gm/dL RDW Coeff of Benjamin 13.0 (11.5-15.5) % Plt Count 223 (140-440) K/uL Neut % (Auto) 80.8 H (42.0-72.0) % Lymph % (Auto) 7.4 L (20-44) % Bullock % (Auto) 11.2 H (0.0-11.0) % Eos % (Auto) 0.0 (0.0-7.0) % Baso % (Auto) 0.3 (0.0-3.0) % Neut # (Auto) 10.40 H (1.7-7.0) K/uL Lymph # (Auto) 1.00 (0.90-2.90) K/uL Bullock # (Auto) 1.40 H (0.00-0.90) K/UL Eos # (Auto) 0.00 (0.00-0.50) K/uL Baso # (Auto) 0.00 (0.00-0.30) K/uL Abs Immat Gran (auto) 0.00 (0.00-0.30) K/uL Imm/Tot Granulo (auto) 0.3 % Sodium 133 L (135-149) mmol/L Potassium 3.9 (3.6-5.1) mmol/L Chloride 102 (96-114) mmol/L Carbon Dioxide 25 (20-32) mmol/L Anion Gap 6 L (7-15) mEq/L BUN 10 (7-30) mg/dL Creatinine 0.8 (0.5-1.5) mg/dL Estimated Creat Clear 56.72 Estimated GFR 83 ml/min Glucose 127 H (60-115) mg/dL Lactate 1.5 (0.5-1.9) mmol/L Calcium 9.2 (8.4-10.6) mg/dL Total Bilirubin 2.0 H (0.1-1.5) mg/dL Direct Bilirubin 0.2 (0.0-0.5) mg/dL AST 20 (12-35) U/L ALT 27 (4-35) U/L Alkaline Phosphatase 63 (40-150) U/L C-Reactive Protein 13.2 H (0.5-1.0) mg/dL Total Protein 7.4 (6.0-8.3) g/dL Albumin 4.1 (3.3-5.0) g/dL Lipase 43 (23-300) U/L Urine Color Yellow (Yellow) Urine Appearance Clear (Clear) Urine pH 7.0 (5.0-8.5) Ur Specific [place] 1.010 (1.000-1.030) Urine Protein Negative (Negative) Urine Glucose (UA) Negative (Negative) Urine Ketones Negative (Negative) Urine Blood Trace-intact A (Negative) Urine Nitrite Negative (Negative) Urine Bilirubin Negative (Negative) Urine Urobilinogen 0.2 (0.2-1.0) Ur Leukocyte Esterase Negative (Negative) Urine RBC 0-2 (0-2) Urine WBC 0-2 (0-5) Ur Squamous Epith Cells None (None-Few) Urine Bacteria None (None) Discharge Plan Discharge Clinical Impression: Acute appendicitis Patient Disposition: XFER to OR Condition: Stable
[2025-03-16 10:43] LABS: Lactate* 1.5 mmol/L (0.5-1.9)
[2025-03-16 10:45] LABS: Hematocrit* 37.7 % (33.0-51.0); Hemoglobin* 12.9 gm/dL (12.0-16.0); Immature Granulocytes Pct Auto 0.3 %; Mean Corpuscular HGB Conc 34 gm/dL (32-36); Mean Corpuscular Hemoglobin 33 pg (26-34); Mean Corpuscular Volume 96 fL (80-100); RDW Coefficient of Variation % 13.0 % (11.5-15.5); Red Blood Count* 3.93 m/uL (4.00-5.20); White Blood Count* 12.89 K/uL (4.50-11.00)
[2025-03-16 10:46] LABS: Albumin* 4.1 g/dL (3.3-5.0); Immature Granulocytes Abs Auto 0.00 K/uL (0.00-0.30); Lymphocytes Absolute Auto 1.00 K/uL (0.90-2.90); Slide Review Reflex No
[2025-03-16 10:47] LABS: Chloride* 102 mmol/L (96-114); Potassium* 3.9 mmol/L (3.6-5.1); Sodium* 133 mmol/L (135-149)
[2025-03-16 10:49] LABS: Blood Urea Nitrogen* 10 mg/dL (7-30); Creatinine* 0.8 mg/dL (0.5-1.5); Est. Creatinine Clearance* 56.72; Estimated Glomerular Filt Rate 83 ml/min
[2025-03-16 10:50] LABS: Alanine Aminotransferase* 27 U/L (4-35); Alkaline Phosphatase* 63 U/L (40-150); Anion Gap 6 mEq/L (7-15); Aspartate Amino Transferase* 20 U/L (12-35); Bilirubin Direct* 0.2 mg/dL (0.0-0.5); Bilirubin Total* 2.0 mg/dL (0.1-1.5); Calcium* 9.2 mg/dL (8.4-10.6); Carbon Dioxide* 25 mmol/L (20-32); Glucose* 127 mg/dL (60-115); Total Protein* 7.4 g/dL (6.0-8.3)
[2025-03-16 11:21] LABS: Appearance Urine Clear (Clear)
--- NOTE | 2025-03-16 12:53 | PM.GSHP ---
History of Present Illness History of Present Illness Date Seen: 03/16/25 Chief complaint: pain in lower right abdomen, fever Narrative: Cayla Cerda is a 64 year old female with metastatic breast cancer presented to emergency room with periumbilical and right lower quadrant abdominal pain. Patient states that her pain started on evening. The pain was described as sharp and constant. The pain was radiating to her back. The pain was worse with movement. Patient's pain continued and she did not want to eat. She was passing gas. Her bowel movement was today. Patient also developed a fever of 100.9 and decided to come to the emergency room. I personally reviewed her workup in the emergency room. Patient was found to have elevated WBC of 12. An abdominal CT was obtained that showed dilated wall enhancing appendix with an appendicolith at its base. There was periappendiceal inflammation with no evidence of an abscess. Patient has metastatic breast cancer and is currently on letrozole and Ibrance. Review of Systems Narrative: General: no fevers HENT: no problems swallowing CV: no shortness of breath Resp: no cough GI: No nausea, vomiting, abdominal pain : no dysuria, no increased urinary frequency, no hematuria Skin: no new rashes Musculoskeletal: no back pain Neuro: no muscle weakness Psyche: no depression, no anxiety PFSH PFSH Medical History Metastasis to bone ?C79.51 - Secondary malignant neoplasm of bone (ICD-10) Metastasis to liver ?C78.7 - Secondary malignant neoplasm of liver and intrahepatic bile duct (ICD-10) Bilateral malignant neoplasm of breast in female, estrogen receptor positive ?C50.911 - Malignant neoplasm of unspecified site of right female breast (ICD-10) ?C50.912 - Malignant neoplasm of unspecified site of left female breast (ICD-10) ?Z17.0 - Estrogen receptor positive status [ER+] (ICD-10) Swelling of left lower extremity ?M79.89 - Other specified soft tissue disorders (ICD-10) Breast cancer metastasized to multiple sites ?C50.919 - Malignant neoplasm of unspecified site of unspecified female breast (ICD-10) Surgical History H/O abdominoplasty ?Z98.890 - Other specified postprocedural states (ICD-10) Social History Smoking Status: Never smoker Do you use any of these nicotine containing products: None How often do you have a drink containing alcohol: never AUDIT-C Alcohol total score: 0 Non-prescribed substance use: denies use Meds Home Medications and Allergies Home Medications ?Medication ?Instructions ?Recorded ?Confirmed ?Type letrozole 2.5 mg tablet 2.5 mg PO QDAY #90 tabs 08/09/24 03/13/25 Rx ascorbic acid (vitamin C) 500 mg 500 mg PO DAILY PRN 09/20/24 03/13/25 History capsule diphenhydramine HCl 25 mg tablet 25 mg PO Q6H PRN itching #60 tabs 09/20/24 03/13/25 Rx (Benadryl Allergy) magnesium citrate 100 mg capsule 100 mg PO QDAY PRN 09/20/24 03/13/25 History biotin 10,000 mcg chewable tablet mcg PO QDAY 11/19/24 03/13/25 History (Hair, Skin and Nails (biotin)) acetaminophen 500 mg tablet 1,000 mg PO Q6H PRN 02/11/25 03/13/25 History (Tylenol Extra Strength) calcium 600 mg (as 1 cap PO BID 02/11/25 03/13/25 History carbonate)-vitamin D3 10 mcg (400 unit) capsule palbociclib 125 mg capsule 125 mg PO QDAY #21 caps 02/11/25 03/13/25 Rx Allergies Allergy/AdvReac Type Severity Reaction Status Date / Time amoxicillin Allergy Intermediate Hives Verified 03/13/25 14:31 Exam Narrative: Exam Narrative: General appearance: Alert, cooperative, and in no distress Pulmonary: Chest symmetric, lungs clear bilaterally Cardiovascular Heart: Regular rate and rhythm, S1, S2, no murmurs/rubs/gallops Gastrointestinal Abdominal: soft, not distended, tender to palpation in the left lower quadrant and right lower quadrant, positive rebound tenderness in the right lower quadrant. Skin: Normal skin color, texture, and turgor. No rashes or lesions. Psychiatric: Alert, cooperative, normal affect. Const: Vital Signs, click to edit/add: Vital Signs - 24 hr 03/16/25 09:55 03/16/25 10:39 03/16/25 10:40 Temperature 99.3 F Pulse Rate 94 95 Pulse Rate [Right Radial] 103 H Respiratory Rate 14 16 Blood Pressure 135/73 Blood Pressure [Ri ght Upper Arm] 104/69 Pulse Oximetry 97 98 97 Oxygen Delivery Me thod Room Air 03/16/25 10:45 03/16/25 11:00 03/16/25 11:01 Temperature Pulse Rate 94 91 92 Pulse Rate [Right Radial] Respiratory Rate 12 Blood Pressure 135/72 Blood Pressure [Ri ght Upper Arm] Pulse Oximetry 97 97 98 Oxygen Delivery Me thod 03/16/25 11:15 03/16/25 11:30 03/16/25 11:31 Temperature Pulse Rate 93 91 96 Pulse Rate [Right Radial] Respiratory Rate 14 Blood Pressure 135/83 Blood Pressure [Ri ght Upper Arm] Pulse Oximetry 97 97 98 Oxygen Delivery Me thod Progress Note:A&P Assessment and plan (1) Acute appendicitis: Status: Acute Plan 64-year-old female presents with acute appendicitis. I discussed with the patient my clinical findings. We talked about her laboratory and imaging findings. Patient has dilated wall enhancing appendix with periappendiceal inflammation and presence of an appendicolith on her CT scan. On clinical exam patient had tenderness to palpation with rebound tenderness. Given the length of time of her symptoms, her appendix could be perforated. I recommended to proceed with laparoscopic appendectomy. The procedure was discussed in detail. The risks associated procedure including infection, bleeding, injury to intra-abdominal organs, and the need for additional procedures were all discussed with the patient, she agreed to proceed.
[2025-03-16] MEDS: ERTAPENEM 1 GM in 0.9 % SODIUM CHLORIDE Mini-bag 100 ML IVPB (13:05)
[2025-03-16] MEDS: ONDANSETRON 2 MG/ML inj 4 MG IVP (13:22)
[2025-03-16] MEDS: BUPIVACAINE 0.25% 30 ML INJECTION (14:47)
[2025-03-16] MEDS: LIDOCAINE 1%-EPI 1:100,000 20 ML INFILTRATI (14:47)
--- NOTE | 2025-03-16 15:04 | PM.GSPRC ---
Operative Note Date of procedure: 03/16/25 Pre-op diagnosis: 1. Acute appendicitis. Post-op diagnosis: 1. Acute perforated appendicitis. Type of Procedure: 1. Laparoscopic appendectomy. Indications: 64-year-old female presented to emergency room with 36 hours of right-sided abdominal pain and low-grade fever. Patient described her pain as sharp and constant and worse with movement. Patient developed a low-grade fever today and presented to emergency room. Upon her workup she was found to have elevated WBC of 12. An abdominal CT was obtained that showed a dilated wall enhancing appendix was an appendicolith. There was periappendiceal inflammation but no evidence of periappendiceal abscess. On clinical exam patient had tenderness to palpation in bilateral lower quadrants, right more than left, with rebound tenderness. Given patient's clinical history and her physical exam, acute appendicitis was suspected, and laparoscopic appendectomy was recommended. The procedure was discussed in detail. The risks associated procedure including infection, bleeding, injury to intra-abdominal organs, and the need for additional procedures were all discussed with the patient, and she agreed to proceed. Procedure Description: After discussing the risks and benefits of the procedure, the patient signed informed consent.? The operative site was marked and the patient was brought to the operating room and placed on the operating table in supine position.? Care was taken to pad the patient's pressure points.?? The patient was then intubated by anesthesia.?? The operative site was then prepped and draped in the usual sterile fashion.? A time-out was then performed. A 5-mm laparoscopy port was placed in the left upper quadrant guided by a 5-mm laparoscope placed into a translucent trochar. Passage through the layers of the abdominal wall was visualized with the laparoscope. A pneumoperitoneum was established. A 30-degree 5-mm laparoscope was advanced into the abdomen. The abdomen was briefly surveyed, and there was no evidence of diffuse peritonitis. A 12-mm port and a 5-mm port were placed in the left low quadrant and suprapubically, respectively, under direct visualization by laparoscope. Left upper quadrant entrance port was then examined intraabdominally by placing the camera through the left lower quadrant port and no intraabdominal injury was seen. The patient was placed in Trendelenburg position, allowing the abdominal contents to shift cephalad. The small bowel was moved toward the midline in the abdomen and this allowed for identification of the appendix. It appeared to be inflamed. The appendix was bluntly peeled off the lateral abdominal wall colonic mesentery and an area of appendiceal perforation was noted. Lukasz stool was leaking from the appendix. This was suctioned out. I then proceeded with dissecting appendiceal mesentery from the lateral abdominal wall. This was done with Harmonic scalpel. Hemostasis was achieved with 5 mm clips and Harmonic scalpel. The mesentery was edematous and friable. Terminal ileal fat pad was tightly adherent to the appendix as well. I mobilized the ileal fat pad off the appendix with Harmonic scalpel to be able to reach the appendiceal base. The appendiceal perforation was just distal to the base. The cecum was edematous but soft. The cecum was attached to the lateral abdominal wall with adhesions. Those adhesions were taken down with Harmonic scalpel to allow mobilization of the cecum. The base was dissected from the surrounding structures and the base was easily identified. The appendiceal base was in close association with the terminal ileum. A vascular staple load was then used to staple the appendix at its base with care taken not to encroach onto the terminal ileum. The appendix was then placed in an endoscopic retrieval bag and extracted from the abdomen through the 12-mm port. The abdomen was surveyed for hemostasis. And no bleeding was seen. The appendiceal staple line appeared to be intact with no bleeding. Right lower quadrant was irrigated with normal saline. Omentum was placed over the appendiceal staple line and the cecum. The 12-mm port was withdrawn and the fascial defect was closed with 0-0 Vicryl stitch using Kameron Blake needle under direct visualization. The 5-mm port was removed under direct visualization. The left upper quadrant port was used to evacuate the pneumoperitoneum and then withdrawn. The skin incisions were closed with 4-0 monocryl. Steri-Strips were applied over the incisions. All counts were correct at the end of the case. The patient tolerated this procedure well and was transferred to PACU in stable condition. Findings: Perforated appendicitis. Anesthesia: GETA Surgeon: Grant Simpson MD Specimen: Appendix Condition: stable Disposition: PACU
--- NOTE | 2025-03-16 15:12 | P.ANES_ITS ---
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
--- NOTE | 2025-03-16 15:12 | W.ANESCHARGE ---
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
--- NOTE | 2025-03-16 15:52 | SUR.PHASEI ---
patient met discharge criteria per anesthesia
[2025-03-16] MEDS: PROCHLORPERAZINE 5 MG/ML VIAL 10 MG IV (18:16)
--- NOTE | 2025-03-16 19:16 | PC.NURSE ---
Nursing Care Hours: [id number] Pt this shift arrived to unit from PACU drowsy but oriented. Continue to monitor BP Q30min during recovery after first hour d/t intermittent hypotensive readings. Up to BR with Ax1. Pt did c/o lightheadedness initially but gait was stable. Hypotensive bowel sounds. Pt c/o nausea. Treated per eMAR. Specialist Wound Care educated pt on NPO diet with allowed ice and sips of water, just encouraging pt to go slow. Pt does report feeling hungry. Pain treated with IV pain meds. Pt c/o tingling and numbness to left hand first three fingers. Specialist Wound Care attempted to massage left wrist to release tension and provided pt with massage cane for left shoulder.
--- NOTE | 2025-03-16 22:39 | PC.NURSE ---
shift note: Pt. is AOx4. VSS. Pt. rates pain 5/10 w/ movement. Pt. denies N/V. Pt. tolerating ice chips and sips of water. Ice applied, three incision sites C/D/I.
[2025-03-16] MEDS: ONDANSETRON 2 MG/ML inj IVP (23:22)
[2025-03-17] VITALS (10 sets, daily range): BP systolic 113–132; BP diastolic 65–79; PULSE 79–92; RESP 15–18; TEMP 36.5–37.2; O2SAT 92–98
--- NOTE | 2025-03-17 05:40 | PC.NURSE ---
Patient on chemo precautions. She is utilizing IV prn medication for pain and nausea and is tolerating sips and chips, NS infusing @ 100/h. Lap sites x 3 clean, dry, and intact. Ice pack offered for comfort.
[2025-03-17 06:32] LABS: Hematocrit* 33.9 % (33.0-51.0); Hemoglobin* 11.4 gm/dL (12.0-16.0); Immature Granulocytes Abs Auto 0.02 K/uL (0.00-0.30); Immature Granulocytes Pct Auto 0.2 %; Mean Corpuscular HGB Conc 34 gm/dL (32-36); Mean Corpuscular Hemoglobin 33 pg (26-34); Mean Corpuscular Volume 99 fL (80-100); RDW Coefficient of Variation % 13.2 % (11.5-15.5); Red Blood Count* 3.44 m/uL (4.00-5.20); White Blood Count* 9.44 K/uL (4.50-11.00)
[2025-03-17 06:37] LABS: Lymphocytes Absolute Auto 1.00 K/uL (0.90-2.90); Slide Review Reflex No
[2025-03-17 06:42] LABS: Chloride* 107 mmol/L (96-114); Potassium* 4.3 mmol/L (3.6-5.1); Sodium* 136 mmol/L (135-149)
[2025-03-17 06:44] LABS: Blood Urea Nitrogen* 12 mg/dL (7-30); Creatinine* 0.7 mg/dL (0.5-1.5); Est. Creatinine Clearance* 56.72; Estimated Glomerular Filt Rate 98 ml/min
[2025-03-17 06:45] LABS: Anion Gap 4 mEq/L (7-15); Calcium* 8.8 mg/dL (8.4-10.6); Carbon Dioxide* 25 mmol/L (20-32); Glucose* 112 mg/dL (60-115)
[2025-03-17] MEDS: ONDANSETRON 2 MG/ML inj IVP (07:59)
[2025-03-17] MEDS: PIPERACILLIN/TAZOBACTAM 3.375 GM in 0.9 % SODIUM CHLORIDE Mini-bag 100 ML IVPB ×3 (09:24→20:49)
[2025-03-17] MEDS: ACETAMINOPHEN 325 MG TABLET 650 MG PO (09:28)
--- NOTE | 2025-03-17 10:13 | P.GSPN_ITS ---
Subjective Subjective Date Seen: 03/17/25 Interval history: Patient is doing well postoperatively. She complains of abdominal pain but the pain is controlled with pain medications. She did have nausea and received anti nausea medication. She is not passing gas. She feels like her abdomen is bloated. She walked to the bathroom once. Exam Narrative: Exam Narrative: General: Patient is afebrile, she was tachycardic yesterday and that improved. Abdomen: Slightly distended, tender to palpation throughout the abdomen not as much in epigastrium, laparoscopic incisions are covered with clean steries. Const: Vital Signs, click to edit/add: Vital Signs - 24 hr 03/16/25 11:15 03/16/25 11:30 03/16/25 11:31 Temperature Pulse Rate 93 91 96 Pulse Rate [Right Pulse Oximeter] Respiratory Rate 14 Blood Pressure 135/83 Blood Pressure [Le ft Arm] Pulse Oximetry 97 97 98 Oxygen Delivery Me thod 03/16/25 15:05 03/16/25 15:10 03/16/25 15:15 Temperature 99.1 F 99.1 F 99.1 F Pulse Rate 110 H 112 H 109 H Pulse Rate [Right Pulse Oximeter] Respiratory Rate 15 21 25 H Blood Pressure 145/81 H 144/80 H 145/81 H Blood Pressure [Le ft Arm] Pulse Oximetry 94 93 95 Oxygen Delivery Me thod Room Air Room Air Room Air 03/16/25 15:20 03/16/25 15:25 03/16/25 15:30 Temperature 99.1 F 99.1 F 99.1 F Pulse Rate 112 H 111 H 109 H Pulse Rate [Right Pulse Oximeter] Respiratory Rate 22 22 20 Blood Pressure 136/82 133/76 120/71 Blood Pressure [Le ft Arm] Pulse Oximetry 96 96 97 Oxygen Delivery Me thod Room Air Room Air Room Air 03/16/25 15:35 03/16/25 15:40 03/16/25 15:47 Temperature 99.9 F H 99.9 F H 99.0 F Pulse Rate 110 H 109 H Pulse Rate [Right Pulse Oximeter] 109 H Respiratory Rate 19 17 20 Blood Pressure 125/69 110/64 Blood Pressure [Le ft Arm] 111/65 Pulse Oximetry 94 94 97 Oxygen Delivery Me thod Room Air Room Air Room Air 03/16/25 16:00 03/16/25 16:00 03/16/25 16:15 Temperature Pulse Rate Pulse Rate [Right Pulse Oximeter] 106 H 106 H 104 H Respiratory Rate 20 20 Blood Pressure Blood Pressure [Le ft Arm] 104/65 99/60 Pulse Oximetry 97 97 Oxygen Delivery Il thod Room Air Room Air 03/16/25 16:30 03/16/25 16:45 03/16/25 17:02 Temperature 98.5 F Pulse Rate Pulse Rate [Right Pulse Oximeter] 101 H 97 101 H Respiratory Rate 20 Blood Pressure Blood Pressure [Le ft Arm] 96/60 114/69 101/65 Pulse Oximetry 97 98 98 Oxygen Delivery Il thod Room Air Room Air 03/16/25 17:32 03/16/25 18:00 03/16/25 18:30 Temperature Pulse Rate Pulse Rate [Right Pulse Oximeter] 104 H 101 H 103 H Respiratory Rate Blood Pressure Blood Pressure [Le ft Arm] 109/60 99/50 L 126/62 Pulse Oximetry 97 96 94 [facility] 03/16/25 19:37 03/16/25 19:37 03/16/25 19:37 Temperature 99.1 F Pulse Rate Pulse Rate [Right Pulse Oximeter] 100 100 Respiratory Rate 16 16 16 Blood Pressure Blood Pressure [Le ft Arm] 102/62 Pulse Oximetry 96 96 Oxygen Delivery Il thod Room Air Room Air 03/16/25 23:22 03/17/25 02:15 03/17/25 02:22 Temperature 98.8 F 98.5 F Pulse Rate Pulse Rate [Right Pulse Oximeter] 89 83 Respiratory Rate 16 15 Blood Pressure Blood Pressure [Le ft Arm] 100/65 113/65 Pulse Oximetry 94 94 94 [facility] 03/17/25 04:00 03/17/25 07:40 03/17/25 10:00 Temperature 98.1 F Pulse Rate Pulse Rate [Right Pulse Oximeter] 83 90 Respiratory Rate 15 18 18 Blood Pressure Blood Pressure [Le ft Arm] 121/73 Pulse Oximetry 93 93 [facility] Progress Note:A&P Assessment and plan (1) S/P laparoscopic appendectomy: Status: Acute Plan 64-year-old female s/p laparoscopic appendectomy for perforated appendicitis. I discussed with the patient that she has an ileus as expected. We will continue with IV antibiotics while inpatient. Patient will continue with NPO and ice chips only for comfort. We will hold her antineoplastic medication and letrozole until return of bowel function. I discussed with the patient that she should ambulate as many times as possible. We will start her on Lovenox for DVT prophylaxis.
[2025-03-17] MEDS: PROCHLORPERAZINE 5 MG/ML VIAL 10 MG IV (13:24)
--- NOTE | 2025-03-17 15:31 | PC.NURSE ---
End of Shift: Patient pleasant and cooperative, A&O. VSS, afebrile. SpO2 maintained above 90% on RA. Bowel sounds hypoactive. Pt reports having one loose BM this shift. Dressings are C/D/I. Independent in room. NPO
[2025-03-17 18:07] LABS: C.Difficile Negative (Negative); CDIFFEPI 027 PRESUMPTIVE NEGATIVE (Negative)
--- NOTE | 2025-03-17 19:43 | PC.NURSE ---
Nursing Care Hours: [id number] Pt this shift calm and cooperative, alert and oriented. Pain treated with IV options, see eMAR. Pt walked faulkner x1 this shift. Denies nausea. Loose stools continuing from previous shift, sample sent to lab for c.diff testing. Urine is looking dark sydnee.
[2025-03-17] MEDS: ENOXAPARIN 40 MG/0.4 ML INJ SUBCUT (20:48)
[2025-03-18 03:00] VITALS: BP 148/83; PULSE 88; RESP 16; TEMP 37; O2SAT 96
[2025-03-18] MEDS: PIPERACILLIN/TAZOBACTAM 3.375 GM in 0.9 % SODIUM CHLORIDE Mini-bag 100 ML IVPB ×4 (03:00→20:40)
[2025-03-18 06:32] LABS: Hematocrit* 32.4 % (33.0-51.0); Hemoglobin* 10.7 gm/dL (12.0-16.0); Immature Granulocytes Abs Auto 0.03 K/uL (0.00-0.30); Immature Granulocytes Pct Auto 0.4 %; Lymphocytes Absolute Auto 0.80 K/uL (0.90-2.90); Mean Corpuscular HGB Conc 33 gm/dL (32-36); Mean Corpuscular Hemoglobin 33 pg (26-34); Mean Corpuscular Volume 99 fL (80-100); RDW Coefficient of Variation % 13.4 % (11.5-15.5); Red Blood Count* 3.27 m/uL (4.00-5.20); Slide Review Reflex No; White Blood Count* 6.73 K/uL (4.50-11.00)
--- NOTE | 2025-03-18 06:57 | PC.NURSE ---
Pt is alert and oriented x3. Afebrile. Pt reports 8/10 abdominal pain, managed with PRN medication. Pt?s 3 lap sites are CDI. Pt is up IND, voiding, and tolerating an NPO diet. Pt had x 5 loose BMs. ?
[2025-03-18 07:00] VITALS: BP 147/89; PULSE 102; PULSE 88; RESP 16; RESP 18; TEMP 36.8; O2SAT 94
[2025-03-18] MEDS: PROCHLORPERAZINE 5 MG/ML VIAL 10 MG IV (08:16)
[2025-03-18 10:47] VITALS: BP 135/81; PULSE 86; RESP 18; TEMP 36.6; O2SAT 97
[2025-03-18 15:00] VITALS: BP 153/90; PULSE 80; RESP 16; TEMP 37.3; O2SAT 99
--- NOTE | 2025-03-18 15:13 | PC.NURSE ---
End of shift [id number]: Pt AxOx3, cooperative, and pleasant with cares. Pt requested a shower today, okayed by MD Mars. Pain managed with ice pack to the abdomen. Lap sites remain CDI. New IV started to the L wrist. Fluids running @ 75 ml/hr. Denies nausea during advancement of diet. Tolerating full liquid diet and fluids well. Indep in room. BS active, Pt passing flatus. Continent of the bladder. Call light within reach. Pt refused taking chemo medication this afternoon due to not feeling comfortable taking it late in the afternoon.
--- NOTE | 2025-03-18 15:56 | PM.GSPN ---
Subjective Subjective Date Seen: 03/18/25 Interval history: Patient is doing well. She had multiple bowel movements yesterday that she described as loose and watery. Her abdominal pain is decreased. She passed some gas. She ambulated. She had some water but does not have great appetite. Exam Narrative: Exam Narrative: Abdomen is soft, still minimally distended, laparoscopic incisions are covered with clean Steri-Strips. Abdomen is tender to palpation in the left lower quadrant but not as much in the right lower quadrant. No peritoneal signs. Const: Vital Signs, click to edit/add: Vital Signs - 24 hr 03/17/25 20:44 03/17/25 23:25 03/18/25 03:00 Temperature 98.9 F 98.2 F 98.6 F Pulse Rate [Right Pulse Oximeter] 90 90 88 Respiratory Rate 16 16 16 Blood Pressure [Le ft Arm] 132/79 125/77 148/83 H Pulse Oximetry 98 97 96 Oxygen Delivery Me thod Room Air Room Air Room Air 03/18/25 07:00 03/18/25 07:00 03/18/25 10:47 Temperature 98.2 F 97.8 F Pulse Rate [Right Pulse Oximeter] 88 102 H 86 Respiratory Rate 16 18 18 Blood Pressure [Le ft Arm] 147/89 H 135/81 Pulse Oximetry 94 97 Oxygen Delivery Me thod Room Air Room Air Progress Note:A&P Assessment and plan (1) S/P laparoscopic appendectomy: Status: Acute Plan 64-year-old female status post laparoscopic appendectomy for perforated appendicitis POD 2. Patient is doing well. We we will advance her diet to clear liquid diet and full liquid diet. Patient can resume her breast cancer medications and states that she needs to take them with food. Will advance her to have full liquid diet prior to her medications. Patient will continue ambulating. If she continues to do well by tomorrow, possible discharge home tomorrow on antibiotics.
[2025-03-18] MEDS: HYDROCODONE-ACETAMIN 5-325 MG 1 TAB PO (16:44)
[2025-03-18] MEDS: ONDANSETRON 2 MG/ML inj IVP (16:44)
[2025-03-18 19:00] VITALS: BP 132/76; PULSE 78; RESP 18; TEMP 36.1; O2SAT 97
[2025-03-18] MEDS: ENOXAPARIN 40 MG/0.4 ML INJ SUBCUT (20:40)
--- NOTE | 2025-03-18 23:41 | PC.NURSE ---
Pt a/o 4, full liquid diet. Pt on Chemo precautions. Pain reported 3-6/10. Nausea reported with pain Meds, prn nausea med given. No reports of nausea for the rest of shift. IV fluids running
[2025-03-18 23:42] VITALS: BP 131/77; PULSE 79; RESP 16; TEMP 36.6; O2SAT 98
[2025-03-19 03:09] VITALS: BP 130/78; PULSE 68; RESP 20; TEMP 36.6; O2SAT 96
[2025-03-19] MEDS: HYDROCODONE-ACETAMIN 5-325 MG 1 TAB PO (03:13)
[2025-03-19] MEDS: PIPERACILLIN/TAZOBACTAM 3.375 GM in 0.9 % SODIUM CHLORIDE Mini-bag 100 ML IVPB (03:14)
[2025-03-19 06:19] LABS: Hematocrit* 30.8 % (33.0-51.0); Hemoglobin* 10.2 gm/dL (12.0-16.0); Immature Granulocytes Abs Auto 0.03 K/uL (0.00-0.30); Immature Granulocytes Pct Auto 0.7 %; Lymphocytes Absolute Auto 0.93 K/uL (0.90-2.90); Mean Corpuscular HGB Conc 33 gm/dL (32-36); Mean Corpuscular Hemoglobin 33 pg (26-34); Mean Corpuscular Volume 99 fL (80-100); RDW Coefficient of Variation % 13.1 % (11.5-15.5); Red Blood Count* 3.11 m/uL (4.00-5.20); White Blood Count* 4.51 K/uL (4.50-11.00)
[2025-03-19 06:23] LABS: Slide Review Reflex No
--- NOTE | 2025-03-19 06:31 | PC.NURSE ---
(Shift 23-07) Pt alert and oriented. Pt up independently. Pt had complaints of pain 0-8; see EMAR for intervention.?
[2025-03-19] MEDS: LETROZOLE 2.5 MG TABLET PO (09:34)
[2025-03-19 09:39] VITALS: BP 151/87; PULSE 84; RESP 18; TEMP 36.9; O2SAT 98
--- NOTE | 2025-03-19 10:02 | P.DS_ITS ---
DS: Providers Provider Date Seen: 03/19/25 Date of admission: 03/16/25 15:48 Primary care physician: Royal Montoya MD Admitting Clinician: Telly Uriostegui MD Attending Physician on discharge: Grant Simpson MD DS: Diagnosis Discharge Diagnosis (1) S/P laparoscopic appendectomy: Status: Acute DS: Summary Hospital Course Hospital Course: 64-year-old female was admitted the hospital after she underwent laparoscopic appendectomy for perforated appendicitis. Patient did well postoperatively. She was treated with IV antibiotics while inpatient. Patient's WBC decreased. Her CRP was trending down. Patient was passing gas and was tolerating diet. She did not have any fevers. Patient was discharged home on p.o. antibiotics. Time Spent with Patient Time attestation: Total time spent providing and/or coordinating discharge services: Exam Narrative: Exam Narrative: Abdomen is soft, distension is decreasing, laparoscopic incisions are covered with Steri-Strips that are clean, minimal tenderness to palpation in the right lower quadrant and left lower quadrant. No peritoneal signs. Const: Vital Signs, click to edit/add: Vital Signs - 24 hr 03/18/25 10:47 03/18/25 15:00 03/18/25 15:00 Temperature 97.8 F 99.2 F Pulse Rate [Right Pulse Oximeter] 86 80 Respiratory Rate 18 16 16 Blood Pressure [Le ft Arm] 135/81 153/90 H Pulse Oximetry 97 99 Oxygen Delivery Me thod Room Air Room Air 03/18/25 19:00 03/18/25 23:42 03/19/25 03:09 Temperature 97.0 F L 97.9 F 97.8 F Pulse Rate [Right Pulse Oximeter] 78 79 68 Respiratory Rate 18 16 20 Blood Pressure [Le ft Arm] 132/76 131/77 130/78 Pulse Oximetry 97 98 96 Oxygen Delivery Me thod Room Air Room Air Room Air 03/19/25 09:39 Temperature 98.4 F Pulse Rate [Right Pulse Oximeter] 84 Respiratory Rate 18 Blood Pressure [Le ft Arm] 151/87 H Pulse Oximetry 98 Oxygen Delivery Me thod Room Air DS: Data Data Completed and Pending Labs on day of discharge: Labs from last 24 hours 03/19/25 05:34 WBC 4.51 RBC 3.11 L Hgb 10.2 L Hct 30.8 L MCV 99 MCH 33 MCHC 33 RDW Coeff of Benjamin 13.1 Plt Count 188 Neut % (Auto) 67.5 Lymph % (Auto) 20.6 [place] % (Auto) 6.9 Eos % (Auto) 2.7 Baso % (Auto) 1.6 Neut # (Auto) 3.05 Lymph # (Auto) 0.93 [place] # (Auto) 0.30 Eos # (Auto) 0.12 Baso # (Auto) 0.07 Abs Immat Gran (auto) 0.03 Imm/Tot Granulo (auto) 0.7 C-Reactive Protein 12.2 H Discharge Plan Discharge Disposition: Home, Self-Care Date of Admission: 03/16/25 15:48 Primary Care Provider: Royal Montoya Condition: Stable Anticipated Discharge Date/Time: 03/19/25 07:29 Discharge Medications: New hydrocodone-acetaminophen 5-325 mg tablet 1 tab PO Q6H PRN (Reason: pain) Qty: 25 0RF ciprofloxacin HCl [Cipro] 500 mg tablet 500 mg PO BID Qty: 10 0RF metronidazole 500 mg tablet 500 mg PO TID Qty: 15 0RF Continued letrozole 2.5 mg tablet 2.5 mg PO QDAY Qty: 90 3RF ascorbic acid (vitamin C) 500 mg capsule 500 mg PO DAILY PRN magnesium citrate 100 mg capsule 100 mg PO QDAY PRN diphenhydramine HCl [Benadryl Allergy] 25 mg tablet 25 mg PO Q6H PRN (Reason: itching) Qty: 60 0RF Rx Instructions: Take as needed for itching Hair, Skin and Nails (biotin) 10,000 mcg tablet,chewable 10,000 mcg PO QDAY calcium carbonate-vitamin D3 600 mg-10 mcg (400 unit) capsule 1 cap PO BID acetaminophen [Tylenol Extra Strength] 500 mg tablet 1,000 mg PO Q6H PRN palbociclib 125 mg capsule 125 mg PO QDAY Qty: 21 6RF Rx Instructions: administer on days 1 through 21 of a 28-day treatment cycle Discharge Orders: Discharge Order (Routine); Ordered 03/19/25 Ordered By: Grant Simpson Patient Education: Ciprofloxacin (By mouth), Hydrocodone/Acetaminophen (By mouth), Metronidazole (By mouth), NH+C Post-Operative Instructions: Appendectomy Activity Level: No strenuous activity Activity Detail: No strenuous activity or lifting more than 15-20 lbs for 4-6 weeks. Leave Steri-Strips on for the next 7-10 days. Avoid swimming or submerging incision under water (except for showering) for 2 weeks. Discharge Diet: Regular Follow Up Appointments: Grant Simpson MD [Staff Physician, General Surgery] - 04/01/25 2:00 pm Referral Note: [facility] for hospital follow-up. Forms: Work/School Release, [facility] Info Instructions
[2025-03-19] MEDS: CIPROFLOXACIN 500 MG TABLET PO (10:27)
--- NOTE | 2025-03-19 10:59 | PC.NURSE ---
Pt discharged @ 1056, accompanied by . Back to home. IV removed. Discharge forms signed. Pt reported understanding of discharge instructions. Medications sent home with Pt. Pain and nausea controlled. Pt in good condition. Final room check complete.
--- NOTE | 2025-03-19 11:00 | PC.NURSE ---
IV infiltrated. Foundry Molder called MD Smith regarding IV Abx that was scheduled. New order to give both oral abx instead prior to discharge.
== END 2025-03-19 10:56 | disposition home or self-care (01) | DRG 225 ==
LOC: ED 12:22 → SS 12:49 → MEDSURG 15:48 → SS 16:42 → MEDSURG 16:42
PROVIDERS: Admitting Provider Surgery; Emergency Provider Family Medicine; PCP Family Medicine; Visit Provider Surgery
PROC: 0DTJ4ZZ Resection of Appendix, Percutaneous Endoscopic Approach (ICD-10-PCS; CPT 44950; principal; 2025-03-16 12:45)
DX: K35.32 Acute appendicitis with perforation, localized peritonitis, and gangrene, without abscess (principal); C50.912 Malignant neoplasm of unspecified site of left female breast; C50.911 Malignant neoplasm of unspecified site of right female breast; C78.7 Secondary malignant neoplasm of liver and intrahepatic bile duct; C79.51 Secondary malignant neoplasm of bone; Z17.0 Estrogen receptor positive status [ER+]
CPT/HCPCS: 00840; 36415; 74177; 80048; 80076; 81001; 83605; 83690; 85025; 86140; 87086; 87493; 99140; 99284; 99285; A9270; J0330; J0665; J0780; J1100; J1171; J1335; J1650; J1885; J2250; J2371; J2405; J2543; J2704; J2710; J3010; J3490; J7030; Q9967

== ENCOUNTER 2025-03-25 10:56 | Emergency (ER) | payer BC, SELFPAY ==
[2025-03-25] VITALS (20 sets, daily range): BP systolic 142–175; BP diastolic 83–97; PULSE 77–100; RESP 16–20; TEMP 37.1; O2SAT 97–99; BMI 29.3
--- OUTSIDE RECORDS SUMMARY | 2025-03-25 10:58 | XMS_ITS | Clinical Summary ---
Author Organization [facility] Address [address] [place] [address] Care Team Providers Care Plisse Machine Operator Name Role Phone SandritaneerugunnerShahla Primary Care Provider [phone] Deandra Marshall RN Unavailable Allergies Active Allergy [...] Encounters Date Type Department Care Team Description 03/25/2025 Nurse Triage [facility] [address] [place] [address] Shahla Velazquez, DO Abdominal Pain 03/18/2025 Lab Requisition [facility] [phone] Grant Simpson MD 03/16/2025 Orders Only [facility] Scanner 1 scan: (1-Ord) [facility], LAPAROSCOPIC APPENDECTOMY, 03/16/2025 03/16/2025 Orders Only [facility] Scanner 1 scan: (1-Ord) [facility], CT ABDOMEN PELVIS W CON, 03/16/2025 03/16/2025 Nurse Triage [facility] [address] [place] [address] Shahla Velazquez, DO Abdominal Pain 03/07/2025 Orders Only [facility] Scanner 1 scan: (1-Ord) [place], SKULL TO MID THIGH, 03/07/2025 from Last 3 Months Immunizations Immunization Administration [...] on file Legal Sex Female 5:41 AM HEALTH AND WELLNESS DIRECTOR Gender Identity Not on file Sexual Orientation [...] 08/06/2024 7:59 AM CDT Plan of Treatment Upcoming Encounters Date Type Department Care Team (Late st Contact Info) Description 04/01/2025 2:00 PM HEALTH AND WELLNESS DIRECTOR [facility] [address] [place] [address] Grant Simpson MD [address] [place] [address] Health Maintenance Due Date Last Done Comments [...] history exists Mammogram for age 45-75 07/10/2025 07/10/19, 02/22/2017, 03/13/2013 Depression screening for age 12+ [...] Procedure Name Priority Date/Time Associated Diagnosis Comments LAB TRACKING EVENT Routine 03/16/2025 2: 35 PM CDT PATH TISSUE EXAM Routine 03/16/2025 2:35 PM CDT SCAN-CT INTERPRETATION 12:00 AM CDT SCAN-OPERATIVE/PROCEDU RE REPORT 03/16/2025 12:00 AM CDT SCAN-PET SCAN 03/07/2025 12:00 AM CDT XR MAMMO DEBBIE BILAT DIAG STAT 07/10/2024 7:35 AM HEALTH AND WELLNESS DIRECTOR Mass of upper inner quadrant of right breast CORONARY CARE UNIT NURSE THIN PREP PAP SCREEN IMAGED Routine 01/21/2023 9:35 AM CDT Cervical cancer screening LIPID PANEL W REFLEX MEASURED LDL Routine 01/21/2023 8:27 AM CDT Screening cholesterol level ACUTE HEPATITIS PANEL Routine 02/24/2017 10:20 AM CDT Encounter for hepatitis C screening test for low risk patient SCAN-COLONOSCOPY 05/28/2013 8:00 AM HEALTH AND WELLNESS DIRECTOR from Last 3 Months or Most Recently Relevant to Health Maintenance Results * LAB TRACKING EVENT (03/16/2025 2:35 PM CDT) Other (Other) Client Collect / Unknown 03/16/2025 2:35 PM CDT 03/18/2025 2:53 PM HEALTH AND WELLNESS DIRECTOR us Grant Simpson MD LAB BILL ONLY Final Resu lt [facility] [address] [place] [address], * PATH TISSUE EXAM (03/16/2025 2:35 PM CDT) Case Report Pathology Report Case: [id number] Authorizing Provider: Grant Simpson MD Collected: 03/16/2025 1435 Ordering [facility]: [facility] Received: 03/18/2025 1543 Pathologist: Apolinar Farrar MD Specimen: Appendix 03/19/2025 5:32 PM HEALTH AND WELLNESS DIRECTOR [facility] Final Diagnosis A) APPENDIX, APPENDECTOMY: 1. Acute appendicitis with perforation and acute serositis 2. Negative for neoplasm 03/19/2025 5:32 PM HEALTH AND WELLNESS DIRECTOR [facility] LAB[facility] at 1732 HEALTH AND WELLNESS DIRECTOR Clinical Information Ms. Cerda is a 64 year-old with preoperative diagnosis of abdominal pain. 03/19/2025 5:32 PM HEALTH AND WELLNESS DIRECTOR [facility] Gross Description A) Received in formalin, labeled with the patient's name and Appendix, is a 4.7 cm long appendix with an average diameter of 1.1 cm, with attached mesoappendix. The serosa is red-brown and ragged. The wall averages 0.5 cm. The mucosa is aguilar and smooth with areas of ragged, red-black discoloration. A perforation is identified 1.6 cm from the proximal margin and inked blue. A discrete mass or fecalith is not identified. Weighing Station Operator sections including the en face margin (inked black) are submitted in 2 cassettes. ADK 03/18/2025 03/19/2025 5:32 PM HEALTH AND WELLNESS DIRECTOR [facility]- ENTRAL LABORATORY Microscopic Description The final diagnosis is based on microscopic examination of appropriate sections of all specimens. 03/19/2025 5:32 PM HEALTH AND WELLNESS DIRECTOR [facility]-C ENTRAL LABORATORY Additional Information Interpreted at [facility] - [address] [place] [address]. [facility] [address], [place] [address] 03/19/2025 5:32 PM HEALTH AND WELLNESS DIRECTOR [facility]- ENTRAL LABORATORY Other APPENDIX SPECIMEN / Unknown 03/16/2025 2:35 PM CDT 03/18/2025 3:43 PM HEALTH AND WELLNESS DIRECTOR us Grant Simpson MD PATHOLOGY/CYTOLOGY Final R esult [facility] [address] [place] [address], [place] * SCAN-OPERATIVE/PROCEDURE REPORT (03/16/2025 12:00 AM CDT) us Scanner OTHER Final Result * SCAN-CT INTERPRETATION (03/16/2025 12:00 AM CDT) Anatomical Region Laterality Modality Other us Scanner OTHER Final Result * SCAN-PET SCAN (03/07/2025 12:00 AM CDT) Anatomical Region Laterality Modality Other us Scanner OTHER Final Result * XR MAMMO DEBBIE BILAT DIAG (07/10/2024 7:35 AM HEALTH AND WELLNESS DIRECTOR) Anatomical Region Laterality Modality BREASTS, Breast Left, Breast Right Bilateral Mammography, Radiographic Imaging 07/10/2024 7:35 AM HEALTH AND WELLNESS DIRECTOR Impressions 07/10/2024 10:53 AM HEALTH AND WELLNESS DIRECTOR ACR BI-RADS Category 4: Suspicious. Results given to the patient. Same-day right breast biopsy will be performed. PATIENTS: You will also receive a letter with your examination results in an easy to read format. If you have questions about your results, please contact your referring provider. Narrative 07/10/2024 10:53 AM HEALTH AND WELLNESS DIRECTOR For Patients: As a result of the Cures Act, medical imaging exams and procedure reports are released immediately into your electronic medical record. You may view this report before your referring provider. If you have questions, please contact your health care provider. EXAM: XR MAMMO DEBBIE BILAT DIAG, US BREAST UNILATERAL RIGHT LIMITED LOCATION: [facility] DATE: 07/10/2024 INDICATION: Mass of upper inner [...] DIAG, US BREAST UNILATERAL RIGHT LIMITED LOCATION: [facility] DATE: 07/10/2024 INDICATION: Mass of upper inner [...] Velazquez DO MAMMO Final Resul t * CORONARY CARE UNIT NURSE THIN PREP PAP SCREEN IMAGED (01/21/2023 9:35 AM CDT) Case Report Gynecologic Cytology Report Case: [id number] Authorizing Provider: Shahla Velazquez DO Collected: 01/21/2023 0935 Ordering Location: [facility] Received: 01/21/2023 0935 Clinic First Screen: Haseeb Lyn Rescreen: Charisse Durham Specimen: CORONARY CARE UNIT NURSE ThinPrep Vial Screening, Cervical 01/27/2023 4:54 PM CDT [facility] INTERPRETATION/ RESULT NEGATIVE FOR INTRAEPITHELIAL LESION OR MALIGNANCY (NIL) (none) 01/27/2023 4:54 PM CDT [facility] ENTRAL LABORATORY at 1654 CDT SPECIMEN ADEQUACY Satisfactory for evaluation Endocervical component present 01/27/2023 4:54 PM CDT [facility] HPV REQUEST HPV if ASCUS 01/27/2023 4:54 PM CDT [facility] Date of LMP Postmenopausal 3 4:54 PM CDT [facility] Last Pap Date 02/24/17 01/27/2023 4:54 PM CDT [facility] Last Pap Result NIL 3 4:54 PM CDT [facility] Abnormal Pap or Midway Bx in last 5 years No 01/27/2023 4:54 PM CDT [facility] Menstrual Status Postmenopausal 01/27/2023 4:54 PM CDT [facility] Midway Bx Done Today No 01/27/2023 4:54 PM CDT [facility] Additional Information None given 01/27/2023 4:54 PM CDT [facility] Comment: Cytology is screened at [facility] - [address], [place] [address] and [facility] - [address], [place] [address] and [facility] - [address] [place] [address] Interpreted at [facility] - [address], [place] [address] Automated Review Successful 01/27/2023 4:54 PM CDT [facility] Comment:Specimen processed s uccessfully by automated blend technician device, ThinPrep Imaging System, [employer] Note The pap test is a [...] and malignant lesions. 01/27/2023 4:54 PM CDT [facility] Other (Cervical) Non-Blood / Unknown 01/21/2023 9:35 AM CDT 01/21/2023 9:35 AM CDT us Shahla Velazquez DO PATHOLOGY/CYTOLOGY Final Re sult [facility] [address] [place] [address], [place] * (ABNORMAL) LIPID PANEL W REFLEX MEASURED LDL (01/21/2023 8:27 AM CDT) CHOLESTEROL,TOTAL 250(H) 100 - 199 mg/dL 01/22/2023 4:14 PM CDT [facility] Comment: Cholesterol, Total Reference Ranges Desirable <200 mg/dL Borderline 200-239 mg/dL High >=240 mg/dL TRIGLYCERIDES 104 <150 mg/dL 01/22/2023 4:14 PM CDT [facility] HDL CHOLESTEROL 69 >40 mg/dL 4:14 PM CDT [facility] NON-HDL CHOLESTEROL 181(H) <145 mg/dl 01/22/2023 4:14 PM CDT [facility] CHOL/HDL RATIO 3.62 <4.50 01/22/2023 4:14 PM CDT [facility] LDL CHOLESTEROL 160(H) <=130 mg/dL 01/22/2023 4:14 PM CDT [facility] VLDL CHOLESTEROL 21 <=30 mg/dL 01/22/2023 4:14 PM CDT [facility] PROVIDER ORDERED STATUS FASTING 01/22/2023 4:14 PM CDT [facility] Blood BLOOD SPECIMEN / Unknown Venipuncture / Unknown 01/21/2023 8:27 AM CDT 01/21/2023 8:27 AM CDT Shahla Velazquez DO CHEMISTRY Final Resul t [facility] SENDOUT INTERNAL ZIP [id number] [place] [address] * ACUTE HEPATITIS PANEL (02/24/2017 10:20 AM CDT) HEPATITIS C ANTIBODY Non-Reactive Non-Reactive 02/24/2017 3:12 PM CDT [facility] IGM ANTI HAV Non-Reactive Non-Reactive 02/25/20 17 3:12 PM CDT [facility] HBSAG Nonreactive Nonreactive 02/24/2017 3:12 PM CDT [facility] IGM ANTI HBC Non-Reactive Non-Reactive 02/25/20 17 3:12 PM CDT [facility] Blood BLOOD SPECIMEN / Unknown Venipuncture / Unknown 02/24/2017 10:20 AM CDT 02/24/2017 10:20 AM CDT Narrative [facility] - 02/24/2017 3:12 PM CDT Anti-HBc IgM not detected. Does not exclude the possibility of exposure to or infection with HBV. us Bisi Waite MD SEND OUTS Final Res ult [facility] [address] [place] [address], [place] * SCAN-COLONOSCOPY (05/28/2013 8:00 AM HEALTH AND WELLNESS DIRECTOR) Narrative Transcriptions Darian Barakat MD - 05/28/2013 7:30 AM CST [facility] [address], [address], [place] [address] Patient Name: Cayla Cerda Gender: Female Exam Date: 05/28/2013 Visit Number: [id number] Age: 52 Years Date of : 1960 Attending MD: Darian Byrd MD Medical Record#: [id number] ----- Procedure: Colonoscopy Indications: Colorectal cancer screening [...] however. Please contact us if you havequestions ([facility] pathologist desk [phone]). MICROSCOPIC A: Performed B: Performed Orders: Patient [...] MD cc: Lynne ALARCON, Luis Carlos Mantilla [facility] [phone] *Portions of this document may have been recorded using electronic voicerecognition technology. us Darian aBrakat MD OTHER Roxy l Result from Last 3 Months or Most Recently Relevant to Health Maintenance Insurance [facility] Care Teams Plisse Machine Operator Relationship Specialty Start Date End Date Shahla Velazquez DO PCP - General Family Practice 02/03/23 Deandra Marshall, SHYANNE [address] [place] [address] Nurse Navigator - Oncology Registered Nurse 07/11/24
--- NOTE | 2025-03-25 12:03 | ED.SOB ---
HPI - SOB/Dyspnea General Time Seen by Provider: 12:03 Date Seen: 03/25/25 Chief Complaint: Shortness of Breath/Dyspnea Stated Complaint: post surgical complications Time Seen by Provider: 03/25/25 12:03 Source: patient, RN notes reviewed and old records reviewed Mode of arrival: ambulatory Limitations: no limitations History of Present Illness HPI Narrative: Cayla is a very pleasant 64-year-old female with a history acute rupture appendicitis appendectomy on 03/16, for breast cancer with metastases to bone liver improved on chemotherapy who comes to the emergency room for evaluation regarding right lower rib and flank pain. Cayla states that while she was hospitalized for 4 days post appendectomy for IV antibiotics she did notice some pain over her right posterior lateral rib cage and flank that she attributed to the recent surgery. This has continued but has now gotten worse. Greatly exacerbated by deep breathing coughing or sneezing. Pain goes from a 3/10 at rest up to a 9/10. No significant cough, congestion, fever. No dysuria or hematuria. Does feel that the wounds on the abdomen have healed well. Last antibiotic dose was yesterday. Patient is concerned about a possible rib fracture as she has been diagnosed with ?brittle bones? from her chemotherapy. She was advised to go on an IV medication-I assume Fosamax IV equivalent but declined. She has been taking calcium and magnesium. Note that she was diagnosed with stage IV breast cancer with metastases from her right breast tumor to her scapula and liver. It does appear to be responsive to chemo and her tumor has definitely shrunk. A PET scan recently showed that the liver spot was gone and the tumor had decreased in size. Related Data Home Medications ?Medication ?Instructions ?Recorded ?Confirmed ascorbic acid (vitamin C) 500 mg 500 mg PO DAILY PRN 09/20/24 03/25/25 capsule magnesium citrate 100 mg capsule 100 mg PO QDAY PRN 09/20/24 03/25/25 biotin 10,000 mcg chewable tablet 10,000 mcg PO QDAY 11/19/24 03/25/25 (Hair, Skin and Nails (biotin)) acetaminophen 500 mg tablet 1,000 mg PO Q6H PRN 02/11/25 03/25/25 (Tylenol Extra Strength) calcium 600 mg (as 1 cap PO BID 02/11/25 03/25/25 carbonate)-vitamin D3 10 mcg (400 unit) capsule Previous Rx's ?Medication ?Instructions ?Recorded letrozole 2.5 mg tablet 2.5 mg PO QDAY #90 tabs 08/09/24 diphenhydramine HCl 25 mg tablet 25 mg PO Q6H PRN itching #60 tabs 09/20/24 (Benadryl Allergy) palbociclib 125 mg capsule 125 mg PO QDAY #21 caps 02/11/25 hydrocodone 5 mg-acetaminophen 325 1 tab PO Q6H PRN pain #25 tabs 03/19/25 mg tablet metronidazole 500 mg tablet 500 mg PO TID #15 tabs 03/19/25 ondansetron 4 mg disintegrating 4 mg PO Q12H PRN nausea and 03/21/25 tablet vomiting #8 tabs Allergies Allergy/AdvReac Type Severity Reaction Status Date / Time amoxicillin Allergy Intermediate Hives Verified 03/25/25 11:05 PFSH PFSH Medical History Metastasis to bone ?C79.51 - Secondary malignant neoplasm of bone (ICD-10) Metastasis to liver ?C78.7 - Secondary malignant neoplasm of liver and intrahepatic bile duct (ICD-10) Bilateral malignant neoplasm of breast in female, estrogen receptor positive ?C50.911 - Malignant neoplasm of unspecified site of right female breast (ICD-10) ?C50.912 - Malignant neoplasm of unspecified site of left female breast (ICD-10) ?Z17.0 - Estrogen receptor positive status [ER+] (ICD-10) Swelling of left lower extremity ?M79.89 - Other specified soft tissue disorders (ICD-10) Breast cancer metastasized to multiple sites ?C50.919 - Malignant neoplasm of unspecified site of unspecified female breast (ICD-10) Surgical History H/O abdominoplasty ?Z98.890 - Other specified postprocedural states (ICD-10) Social History Smoking Status: Never smoker Do you use any of these nicotine containing products: None How often do you have a drink containing alcohol: never AUDIT-C Alcohol total score: 0 Non-prescribed substance use: denies use Exam Narrative: Exam Narrative: Alert and oriented. No acute distress. External ears eyes nose clear. Heart with a regular rate and rhythm and lungs are clear. Abdomen is soft. No significant tenderness. No significant CVA tenderness with percussion but she does feeling something when I do that. The surgical wounds are well healed. Lower extremities without edema or calf tenderness. Const: Vital Signs, click to edit/add: Vital Signs - 24 hr 03/25/25 11:06 03/25/25 12:46 03/25/25 12:48 Temperature 98.7 F Pulse Rate 79 80 Pulse Rate [Pulse Oximeter] 100 Respiratory Rate 20 Blood Pressure 149/87 H Blood Pressure [Ri ght Upper Arm] 151/93 H Pulse Oximetry 98 98 99 Oxygen Delivery Me thod Room Air 03/25/25 13:00 03/25/25 13:02 03/25/25 13:40 Temperature Pulse Rate 77 81 84 Pulse Rate [Pulse Oximeter] Respiratory Rate Blood Pressure 142/88 H Blood Pressure [Ri ght Upper Arm] Pulse Oximetry 97 97 99 Oxygen Delivery Me thod 03/25/25 13:42 03/25/25 13:45 03/25/25 14:00 Temperature Pulse Rate 84 78 80 Pulse Rate [Pulse Oximeter] Respiratory Rate 16 Blood Pressure 153/87 H Blood Pressure [Ri ght Upper Arm] Pulse Oximetry 99 99 98 Oxygen Delivery Me thod 03/25/25 14:02 03/25/25 14:03 03/25/25 14:15 Temperature Pulse Rate 77 78 79 Pulse Rate [Pulse Oximeter] Respiratory Rate 16 Blood Pressure 152/90 H Blood Pressure [Ri ght Upper Arm] Pulse Oximetry 99 99 98 Oxygen Delivery Me thod 03/25/25 14:30 03/25/25 14:31 03/25/25 14:45 Temperature Pulse Rate 79 80 85 Pulse Rate [Pulse Oximeter] Respiratory Rate 16 Blood Pressure 151/96 H Blood Pressure [Ri ght Upper Arm] Pulse Oximetry 98 99 99 Oxygen Delivery Me thod 03/25/25 15:00 03/25/25 15:02 03/25/25 15:15 Temperature Pulse Rate 88 84 83 Pulse Rate [Pulse Oximeter] Respiratory Rate Blood Pressure 175/97 H Blood Pressure [Ri ght Upper Arm] Pulse Oximetry 99 97 98 Oxygen Delivery Me thod 03/25/25 15:30 03/25/25 15:32 Temperature Pulse Rate 83 Pulse Rate [Pulse Oximeter] Respiratory Rate 16 Blood Pressure 153/83 H Blood Pressure [Ri ght Upper Arm] Pulse Oximetry 99 Oxygen Delivery Me thod Documenting provider has reviewed patient's vital signs: yes Course Course ED Course: Differential diagnosis includes but is not limited to bony injury, metastases to ribs, PE, bowel perforation, bowel leak, musculoskeletal pain. Will place an IV give 1 L of normal saline as I do plan on a CT of the chest abdomen pelvis given patient's underlying diagnosis of metastatic breast cancer as well as recent appendicitis with ruptured complications. Will also check CBC, comprehensive, lipase, urinalysis. Reevaluation(s) Reevaluation #1: Patient noted to have large pleural effusion on the right side. Awaiting official rad read. Consultations Consultation #1: I had the pleasure of speaking to certified surgical assistant, Dr. Corrales. Dr. Corrales was able to view the CT and feels that the intrabdominal inflammation would be what she would expect with recent surgery. Advises against abx due to normal WBC and normal vs. Does suggest thoracentesis for effusion sampling tomorrow morning. Vital Signs Vital signs: Initial Vital Signs Temperature 98.7 F 03/25/25 11:06 Temperature Source Temporal Artery Scan 03/25/25 11:06 Pulse Rate 100 03/25/25 11:06 Respiratory Rate 20 03/25/25 11:06 Blood Pressure 151/93 H 03/25/25 11:06 Blood Pressure Mean 112 H 03/25/25 11:06 Pulse Oximetry 98 03/25/25 11:06 Oxygen Delivery Method Room Air 03/25/25 11:06 Vital Signs Temperature 98.7 F 03/25/25 11:06 Pulse Rate 100 03/25/25 11:06 Respiratory Rate 20 03/25/25 11:06 Blood Pressure 151/93 H 03/25/25 11:06 Pulse Oximetry 98 03/25/25 11:06 Oxygen Delivery Method Room Air 03/25/25 11:06 Temperature 98.7 F 03/25/25 11:06 Pulse Rate 83 03/25/25 15:30 Respiratory Rate 16 03/25/25 15:32 Blood Pressure 153/83 H 03/25/25 15:32 Pulse Oximetry 99 03/25/25 15:30 Oxygen Delivery Method Room Air 03/25/25 11:06 Medications Administered Medications: Discontinued Medications Generic Name Dose Route Start Last Admin Trade Name Richard PRN Reason Stop Dose Admin Sodium Chloride 1,000 mls @ 1,000 mls/hr 03/25/25 12:21 03/25/25 14:08 0.9 % Sodium Chloride 1000 Ml IV 03/25/25 13:20 Infused .Q1H TAMARA Infusion MDM - SOB/Dyspnea MDM Narrative Medical decision making narrative: 1. R pleural effusion - possibly reaction from surgery. Thoracentesis scheduled for tomorrow morning at 7:15. Patient advised to avoid aspirin and Nsaids. 2. Flank Pain - likely from effusion. Patient does have pain meds at home that she may use. 3. Dispostition - return if needed for fever, difficulty breathing, worsening symptoms overnight. Follow up as scheduled with Dr. Corrales tomorrow morning. Medical Records Attestation: I reviewed the patient's medical records. Medical records narrative: Reviewed both oncology as well as recent hospitalization Lab Data Attestation: I reviewed the patient's lab results. Labs: Lab Results 03/25/25 03/25/25 Range/Units 12:45 13:30 WBC 6.89 (4.50-11.00) K/uL RBC 3.80 L (4.00-5.20) m/uL Hgb 12.3 (12.0-16.0) gm/dL Hct 36.8 (33.0-51.0) % MCV 97 (80-100) fL MCH 32 (26-34) pg MCHC 33 (32-36) gm/dL RDW Coeff of Benjamin 13.0 (11.5-15.5) % Plt Count 546 H (140-440) K/uL Neut % (Auto) 72.7 H (42.0-72.0) % Lymph % (Auto) 18.9 L (20-44) % [place] % (Auto) 5.2 (0.0-11.0) % Eos % (Auto) 1.7 (0.0-7.0) % Baso % (Auto) 0.9 (0.0-3.0) % Neut # (Auto) 5.00 (1.7-7.0) K/uL Lymph # (Auto) 1.30 (0.90-2.90) K/uL [place] # (Auto) 0.40 (0.00-0.90) K/UL Eos # (Auto) 0.12 (0.00-0.50) K/uL Baso # (Auto) 0.06 (0.00-0.30) K/uL Abs Immat Gran (auto) 0.04 (0.00-0.30) K/uL Imm/Tot Granulo (auto) 0.6 % Sodium 138 (135-149) mmol/L Potassium 4.2 (3.6-5.1) mmol/L Chloride 104 (96-114) mmol/L Carbon Dioxide 26 (20-32) mmol/L Anion Gap 8 (7-15) mEq/L BUN 13 (7-30) mg/dL Creatinine 0.7 (0.5-1.5) mg/dL Estimated Creat Clear 56.72 Estimated GFR 98 ml/min Glucose 105 (60-115) mg/dL Calcium 9.1 (8.4-10.6) mg/dL Total Bilirubin 0.6 (0.1-1.5) mg/dL AST 19 (12-35) U/L ALT 17 (4-35) U/L Alkaline Phosphatase 77 (40-150) U/L Total Protein 7.2 (6.0-8.3) g/dL Albumin 3.8 (3.3-5.0) g/dL Lipase 151 (23-300) U/L Urine Color Yellow (Yellow) Urine Appearance Clear (Clear) Urine pH 7.0 (5.0-8.5) Ur Specific [place] 1.010 (1.000-1.030) Urine Protein Negative (Negative) Urine Glucose (UA) Negative (Negative) Urine Ketones Negative (Negative) Urine Blood Negative (Negative) Urine Nitrite Negative (Negative) Urine Bilirubin Negative (Negative) Urine Urobilinogen 0.2 (0.2-1.0) Ur Leukocyte Esterase Negative (Negative) Urine RBC 0-2 (0-2) Urine WBC 0-2 (0-5) Ur Squamous Epith Cells None (None-Few) Urine Bacteria None (None) Discharge Plan Discharge Clinical Impression: Breast cancer metastasized to multiple sites, Rib pain on right side, Status post appendectomy Patient Disposition: Home, Self-Care Condition: Unchanged Additional Instructions: Pain meds as needed. Avoid aspirin ibuprofen Aleve until after the aspiration of lung fluid. Return to the [facility] @ 0700 on 03/26/25 for a 7:15 Thoracentesis.t Prescriptions: No Action letrozole 2.5 mg tablet 2.5 mg PO QDAY Qty: 90 3RF ascorbic acid (vitamin C) 500 mg capsule 500 mg PO DAILY PRN magnesium citrate 100 mg capsule 100 mg PO QDAY PRN diphenhydramine HCl [Benadryl Allergy] 25 mg tablet 25 mg PO Q6H PRN (Reason: itching) Qty: 60 0RF Rx Instructions: Take as needed for itching Hair, Skin and Nails (biotin) 10,000 mcg tablet,chewable 10,000 mcg PO QDAY calcium carbonate-vitamin D3 600 mg-10 mcg (400 unit) capsule 1 cap PO BID acetaminophen [Tylenol Extra Strength] 500 mg tablet 1,000 mg PO Q6H PRN palbociclib 125 mg capsule 125 mg PO QDAY Qty: 21 6RF Rx Instructions: administer on days 1 through 21 of a 28-day treatment cycle hydrocodone-acetaminophen 5-325 mg tablet 1 tab PO Q6H PRN (Reason: pain) Qty: 25 0RF metronidazole 500 mg tablet 500 mg PO TID Qty: 15 0RF ondansetron 4 mg tablet,disintegrating 4 mg PO Q12H PRN (Reason: nausea and vomiting) Qty: 8 0RF Follow Up/Referrals: Royal Montoya MD [Primary Care Provider, Family Practice] Stand Alone Forms: [facility] Info Instructions
--- NOTE | 2025-03-25 12:21 | CRLHL7_ITS ---
For Patients: As a result of the Century Cures Act, medical imaging exams and procedure reports are released immediately into your electronic medical record. You may view this report before your referring provider. If you have questions, please contact your health care provider. INDICATION: Pain in right posterior ribcage, flank pain, breast cancer, recent appendicitis TECHNIQUE: CT chest PE, abdomen and pelvis acquired with 95 cc Isovue 370 IV contrast. COMPARISON: PET-CT 03/07/2025, CT abdomen and pelvis with contrast 03/16/2025 FINDINGS: CHEST: Cardiovascular structures: Heart size is normal. Thoracic aorta and main pulmonary artery are normal in caliber. No sign of pulmonary embolism. Mediastinum and nela: No mass or adenopathy. Lungs and pleura: Moderate to large right pleural effusion with adjacent atelectasis. Mild additional subsegmental atelectasis within the right middle lobe and left lung base. Chest wall and axilla: Heterogeneous, enlarged thyroid gland consistent with multinodular goiter with particular enlargement of the left thyroid gland and rightward shift of the trachea. Right breast mass with irregular margins measures approximally 2.3 by 1.7 centimeters (series 5, image 100). Bones: No acute osseous abnormality. Similar small sclerotic lesion within the right scapular body. ABDOMEN AND PELVIS: Liver: Multiple similar ill-defined hypoattenuating lesions, the largest of which in the left hepatic lobe measures up to approximately 3.3 centimeters in size (series 2, image 24). Gallbladder and bile ducts: Unremarkable. Pancreas: Unremarkable. Spleen: Unremarkable. Adrenal glands: Unremarkable. Kidneys: No hydronephrosis. Probable left renal cyst and additional cortical hypodensities too small to characterize. Similar hyperdense exophytic lesion along the lower pole right kidney, incompletely characterized though may reflect hyperdense cyst (series 2, image 74). There is similar right urothelial thickening and enhancement, likely reactive secondary to inflammatory changes in the right lower quadrant. GI tract: Postsurgical changes of interval appendectomy. There is persistent fat stranding within the right lower quadrant. No defined fluid collection. No bowel obstruction. Vascular structures: Unremarkable. Lymph nodes: Unremarkable. Miscellaneous: Fat stranding along the anterior abdominal wall, which may be postsurgical. No free air or significant free fluid. Pelvic Organs: Similar heterogeneous uterus with multiple masses, several of which demonstrate calcifications and areas of low-density likely compatible with multiple uterine fibroids. Bones: No acute or suspicious osseous abnormality. Unchanged probable bone islands within the pelvis. Unchanged tiny sclerotic focus within the L4 vertebral body and left femoral neck. IMPRESSION: 1. No evidence of pulmonary embolism. 2. New moderate to large right pleural effusion with adjacent atelectasis. 3. Postsurgical changes from interval appendectomy with persistent inflammatory changes in the right lower quadrant. No fluid collection. 4. Similar appearance of right breast mass and multiple hepatic lesions. Please note that all CT scans at this facility use dose modulation, iterative reconstruction, and/or weight-based dosing when appropriate to reduce radiation dose to as low as reasonably achievable. Dictated by Samantha Navarro MD @ 03/25/2025 1:48:30 PM (Electronically Signed)
[2025-03-25 12:54] LABS: Hematocrit* 36.8 % (33.0-51.0); Hemoglobin* 12.3 gm/dL (12.0-16.0); Immature Granulocytes Abs Auto 0.04 K/uL (0.00-0.30); Immature Granulocytes Pct Auto 0.6 %; Lymphocytes Absolute Auto 1.30 K/uL (0.90-2.90); Mean Corpuscular HGB Conc 33 gm/dL (32-36); Mean Corpuscular Hemoglobin 32 pg (26-34); Mean Corpuscular Volume 97 fL (80-100); RDW Coefficient of Variation % 13.0 % (11.5-15.5); Red Blood Count* 3.80 m/uL (4.00-5.20); White Blood Count* 6.89 K/uL (4.50-11.00)
[2025-03-25 12:58] LABS: Slide Review Reflex No
[2025-03-25 13:07] LABS: Albumin* 3.8 g/dL (3.3-5.0); Chloride* 104 mmol/L (96-114); Potassium* 4.2 mmol/L (3.6-5.1); Sodium* 138 mmol/L (135-149)
[2025-03-25 13:09] LABS: Alanine Aminotransferase* 17 U/L (4-35); Alkaline Phosphatase* 77 U/L (40-150); Anion Gap 8 mEq/L (7-15); Aspartate Amino Transferase* 19 U/L (12-35); Bilirubin Total* 0.6 mg/dL (0.1-1.5); Blood Urea Nitrogen* 13 mg/dL (7-30); Carbon Dioxide* 26 mmol/L (20-32); Creatinine* 0.7 mg/dL (0.5-1.5); Est. Creatinine Clearance* 56.72; Estimated Glomerular Filt Rate 98 ml/min; Total Protein* 7.2 g/dL (6.0-8.3)
[2025-03-25 13:10] LABS: Calcium* 9.1 mg/dL (8.4-10.6); Glucose* 105 mg/dL (60-115)
[2025-03-25 13:42] LABS: Appearance Urine Clear (Clear)
== END 2025-03-25 15:37 | disposition home or self-care (01) ==
PROVIDERS: Emergency Provider Family Medicine; PCP Family Medicine
DX: J90 Pleural effusion, not elsewhere classified (principal); C50.912 Malignant neoplasm of unspecified site of left female breast; C50.911 Malignant neoplasm of unspecified site of right female breast; C78.7 Secondary malignant neoplasm of liver and intrahepatic bile duct; C79.51 Secondary malignant neoplasm of bone; R07.89 Other chest pain; Z90.49 Acquired absence of other specified parts of digestive tract
CPT/HCPCS: 36415; 71275; 74177; 80053; 81001; 83690; 85025; 96360; 99284; 99285; J7030; Q9967

== ENCOUNTER 2025-03-26 07:29 | Outpatient (CLI) | payer BC, SELFPAY ==
[2025-03-26 07:46] VITALS: BP 142/82; PULSE 93; RESP 20; TEMP 37.1; O2SAT 98
--- NOTE | 2025-03-26 08:46 | PM.GSCN ---
History of Present Illness Consult details Date Seen: 03/26/25 Consult date: 03/26/25 Narrative: Patient presents today for evaluation of a new right-sided pleural effusion. She went to the emergency department last night with pain on deep inspiration underneath her ribs and shortness of breath. She had recently had surgery for perforated appendicitis (03/16, laparoscopic appendectomy by Dr. Simpson). She completed her course of antibiotics. She reports no fevers. No abdominal pain. She is tolerating a regular diet and having regular bowel movements. On workup in the emergency department last night CT of the abdomen/pelvis demonstrated inflammatory changes in the right lower quadrant, consistent with post op appendectomy. No concern for abscess or staple leak. A CT of the chest was obtained which showed a new pleural effusion. Review of Systems Status of ROS: Reports: 10 or more systems reviewed and unremarkable except as noted in History and below [facility] Medical History Metastasis to bone ?C79.51 - Secondary malignant neoplasm of bone (ICD-10) Metastasis to liver ?C78.7 - Secondary malignant neoplasm of liver and intrahepatic bile duct (ICD-10) Bilateral malignant neoplasm of breast in female, estrogen receptor positive ?C50.911 - Malignant neoplasm of unspecified site of right female breast (ICD-10) ?C50.912 - Malignant neoplasm of unspecified site of left female breast (ICD-10) ?Z17.0 - Estrogen receptor positive status [ER+] (ICD-10) Swelling of left lower extremity ?M79.89 - Other specified soft tissue disorders (ICD-10) Breast cancer metastasized to multiple sites ?C50.919 - Malignant neoplasm of unspecified site of unspecified female breast (ICD-10) Surgical History H/O abdominoplasty ?Z98.890 - Other specified postprocedural states (ICD-10) Social History Smoking Status: Never smoker Do you use any of these nicotine containing products: None How often do you have a drink containing alcohol: never AUDIT-C Alcohol total score: 0 Non-prescribed substance use: denies use Meds Home Medications and Allergies Home Medications ?Medication ?Instructions ?Recorded ?Confirmed ?Type letrozole 2.5 mg tablet 2.5 mg PO QDAY #90 tabs 08/09/24 03/25/25 Rx ascorbic acid (vitamin C) 500 mg 500 mg PO DAILY PRN 09/20/24 03/25/25 History capsule diphenhydramine HCl 25 mg tablet 25 mg PO Q6H PRN itching #60 tabs 09/20/24 03/25/25 Rx (Benadryl Allergy) magnesium citrate 100 mg capsule 100 mg PO QDAY PRN 09/20/24 03/25/25 History biotin 10,000 mcg chewable tablet 10,000 mcg PO QDAY 11/19/24 03/25/25 History (Hair, Skin and Nails (biotin)) acetaminophen 500 mg tablet 1,000 mg PO Q6H PRN 02/11/25 03/25/25 History (Tylenol Extra Strength) calcium 600 mg (as 1 cap PO BID 02/11/25 03/25/25 History carbonate)-vitamin D3 10 mcg (400 unit) capsule palbociclib 125 mg capsule 125 mg PO QDAY #21 caps 02/11/25 03/25/25 Rx hydrocodone 5 mg-acetaminophen 325 1 tab PO Q6H PRN pain #25 tabs 03/19/25 03/25/25 Rx mg tablet metronidazole 500 mg tablet 500 mg PO TID #15 tabs 03/19/25 Rx ondansetron 4 mg disintegrating 4 mg PO Q12H PRN nausea and 03/21/25 Rx tablet vomiting #8 tabs Allergies Allergy/AdvReac Type Severity Reaction Status Date / Time amoxicillin Allergy Intermediate Hives Verified 03/25/25 11:05 Exam Narrative: Exam Narrative: General: Alert and oriented, no acute distress Respiratory: Equal breath rise, maintained on room air, some decreased breath sounds in the right lower lobe CV: Well perfused Abdomen: Soft, nondistended and nontender. Const: Vital Signs, click to edit/add: Vital Signs - 24 hr 03/26/25 07:46 Temperature 98.8 F Pulse Rate [Left P ulse Oximeter] 93 Respiratory Rate 20 Blood Pressure [Ri ght Arm] 142/82 H Pulse Oximetry 98 Oxygen Delivery Me thod Room Air Results Labs Labs: No leukocytosis. Imaging Abdomen CT scan report/results: report reviewed and image reviewed CT scan - chest: report reviewed and image reviewed Progress Note:A&P Assessment and plan (1) Pleural effusion: Status: Acute Assessment and Plan: Patient presents for evaluation of a new right-sided pleural effusion. On imaging the fluid is simple in appearance. Vital signs stable. Labs are within normal limits, no evidence of leukocytosis. Patient reports no fevers, cough or congestion. Low concern at this time for pneumonia with associated parapneumonic effusion. Given her recent surgery for perforated appendicitis suspect this is most likely reactive versus infection or associated with her metastatic breast cancer. The fluid was evaluated today with ultrasound. No window was visualized to allow for easy removal. Patient was also reporting subjective improvement in her symptoms. Different treatment options were discussed with the patient including removal for a diagnostic thoracentesis versus following up with Dr. Simpson next week in clinic with a repeat chest x-ray. Would expect the effusion to improve if it is reactive. After answering all of the patient's questions she has proceed with a short interval follow-up with repeat imaging on Tuesday. Plan -patient to follow-up next Tuesday at the [facility] clinic with Dr. Simpson.
== END 2025-03-26 08:12 | disposition home or self-care (01) ==
PROVIDERS: PCP Family Medicine; Visit Provider Surgery
DX: Z53.8 Procedure and treatment not carried out for other reasons (principal); J90 Pleural effusion, not elsewhere classified; C50.912 Malignant neoplasm of unspecified site of left female breast; C50.911 Malignant neoplasm of unspecified site of right female breast; C78.7 Secondary malignant neoplasm of liver and intrahepatic bile duct; C79.51 Secondary malignant neoplasm of bone; Z17.0 Estrogen receptor positive status [ER+]
CPT/HCPCS: 76604